=== PATIENT | female | born 1965 | race Caucasian/White ===

== ENCOUNTER → 2017-08-01 13:36 | Outpatient (CLI) | payer OTHER, SELFPAY ==
--- NOTE | 2017-08-01 13:39 | RAD_ITS ---
STUDY: X-RAY - RIGHT SHOULDER REASON FOR EXAM: Female, 51 years old. Strain injury. TECHNIQUE: 4 view(s) of the shoulder. COMPARISON: Chest, June 19, 2016. FINDINGS: Normal glenohumeral articulation. There is mild degenerative arthrosis of the acromioclavicular joint without inferior osseous spur formation. Normal acromion. There is no acute fracture, dislocation or destructive osseous pathology. Normal humeral head and visualized proximal humerus. The soft tissue structures are unremarkable. Normal visualized pulmonary apex. RAD/Shoulder min 2 Views IMPRESSION: Minimal acromioclavicular joint degenerative change. The findings are unchanged from prior chest film. Electronically Signed: Crow Wan DO at 18:54 EDT Tel [phone], Service support ,
== END ==
PROVIDERS: Family Provider Family Medicine; PCP Family Medicine; Visit Provider Physician Assistant
DX: S46.911A Strain of unspecified muscle, fascia and tendon at shoulder and upper arm level, right arm, initial encounter (principal); M25.511 Pain in right shoulder
CPT/HCPCS: 73030

== ENCOUNTER 2017-09-20 09:30 | Outpatient (RCR) | payer OTHER, SELFPAY ==
--- NOTE | 2017-08-17 14:57 | HP.PTEVAL_ITS ---
Patient's Visit Information TEETEE WALKER is a 51 year old F referred to Physical Therapy by SAMEER Garcia.SAUL with a diagnosis of R biceps tendonitis and shoulder strain.. Date of Evaluation: 08/17/17 Physical Therapist: Ludwin Barber DPT, OC - Visit Plan Frequency: 2-3x /Week Duration: 4 Weeks Plan: 3x/week for 4 weeks for. US nonthermal to R anterior shoulder. R shoulder PROM and mobs for pain. R shoulder sstrength and scap strength painfree. - Subjective Subjective: R shoulder working on a weekend and pulling patinet with gait belt yanking on R UE and that was July 20. Pain in shoulder has been since then. Pain is anterior R shoulder and was healthy prior. No numbness or tingling and no neck problems lately but was tight initially in R neck. Hurts to lie on R side and this interrupts her sleep but it is improving, needs motrin. Lying on L side can hurt also. 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 Comfortable at rest. Avoids sweeping as she is right handed. Lifting hand overhead hurts. Putting on shirt hurts. Not doing aerobics with hand over head. - Pain R shoulder pain Pain Intensity (Out of 10): 0 Pain Intensity Range: 0, 10 Comment: on back lying last night and moving. - Objective Walks and transfers I. Posture is forward head and forward shoulders/scapula. L UE AROM WFL. C/S AROM WFL and without pain, - c/s compression. R UE limited in flexion ROM to 130 due to paina dn abd, passively has full ROM but painful. Full rotation ROM but painful end range of IR. Elbow and wrist ROM ful and painfree. reflexes 2/3 bi and tri. Sensation UE WNL to gross light touch. - Vicente Tee, - Ann, - ext rotation lag test, not much problem with labral test, slightly painful R. - drop arm. - Goals Goal 1:: Full aROM R shoulder without pain Goal Time Frame: 2-4 Weeks Goal 2:: Patient have pain 0-2/10 at all times and 80% improved. Goal Time Frame: 2-4 Weeks Goal 3:: Patient ready to have work restrictions lifted safely. Goal Time Frame: 2-4 Weeks - Rehabilitation Potential Physical Therapy Diagnosis: R shoulder pain labral vs subluxed. Rehabilitation Potential: Fair - Anticipated Interventions Patient/Client Instruction: Educate patient on: Condition, Plan of Care For the Purpose of:: To decrease pain, To increase ROM, To improve ability of physical actions for home/community/work/leisure Therapeutic Exercise to Include: Strength training, Passive ROM, Active ROM, Scapular Strength/Stabilization For the Purpose of:: To increase ROM, To improve ability of physical actions for home/community/work/leisure Cryotherapy (ice pack, ice massage): Yes Ultrasound (thermal/non thermal): Yes - nonthermal For the Purpose of:: To decrease pain, To decrease swelling/inflammation Thank you for the opportunity to evaluate your patient. For Medicare and Medicare HMO plans, please review the plan of care and approve it. It will need to be FAXED BACK to us at [phone] for Medicare purposes. Please let me know if there are questions or concerns regarding this plan of care. Physician Signature: Date:
--- NOTE | 2017-09-04 15:21 | HP.PTREVAL_ITS ---
SAMEER Garcia, It has been my pleasure to treat TEETEE WALKER over the last 8 visits for R biceps tendonitis and shoulder strain.. Please see the progress note below for an update on the physical therapy plan of care! Subjective: Better, not as much pain. Can put arm behond back without pain. Hair and dressing OK. Exercises at home with stretching and ROM. Sleep is good. Pain to 3/10 in last Two days on computer, worse end of day. Objective/Function: Full aROM R UE but horiz add still somewhat painful. Other motions much better. Pt comofrtable at rest. Strength is 4/5 R UE and some pain with abd resisted and supination slightly. OVERALL MUCH BETTER BUT RECOMMEND GETTING EXTENSION FOR 4 MORE VISITS TO PROGRESS TO STRENGTHENING. Plan Plan: COTINUE AND WORK ON STRENGTH OF SCAP AND rc AND IN GYM PROGRESSION BACK TO FULL MACHINES AND DUMBBELLS PAIN ALLOWS. RECOMMEND CONTINUING PRECAUTIONS AND LIMITATIONS AT WORK UNTIL THIS TIME IS UP. Goals Goal 1:: Full aROM R shoulder without pain Goal Time Frame: 2-4 Weeks Goal Progress: Progressing Goal 2:: Patient have pain 0-2/10 at all times and 80% improved. Goal Time Frame: 2-4 Weeks Goal Progress: Progressing Goal 3:: Patient ready to have work restrictions lifted safely. Goal Time Frame: 2-4 Weeks Goal Progress: Progressing Goal 4:: Pt back to I workout in gym for overall body and specific RC and scap ex. Goal Time Frame: 2 Weeks Goal Progress: NEW GOAL Anticipated Interventions Patient/Client Instruction: Educate patient on: Condition, Plan of Care For the Purpose of:: To decrease pain, To increase ROM, To improve ability of physical actions for home/community/work/leisure Therapeutic Exercise to Include: Strength training, Passive ROM, Active ROM, Scapular Strength/Stabilization For the Purpose of:: To increase ROM, To improve ability of physical actions for home/community/work/leisure Cryotherapy (ice pack, ice massage): Yes Ultrasound (thermal/non thermal): Yes - nonthermal For the Purpose of:: To decrease pain, To decrease swelling/inflammation Please do not hesitate to contact me at [phone] by phone or Fax: if you have questions or concerns regarding this new plan of care! Sincerely, Ludwin Barber, DPT, OC
--- NOTE | 2017-09-20 10:21 | HP.PTDCSUM ---
HP - PT D/C Summary It has been my pleasure to treat TEETEE WALKER under orders from SAMEER Garcia, for the diagnosis of R biceps tendonitis and shoulder strain. for a total of 12 visit(s). Discharge Date: 09/20/17 Please see the following information for a summary of their discharge status. - Subjective Subjective: OK. Always feels tight. Pain has been nonexistent. Worked yesterday on computer all day. Stretching at home. and it loosens her up. Strengthening in gym. [facility]. Stilla voiding lifting and transferring at work due to orders. - Pain R shoulder pain Pain Intensity (Out of 10): 0 - Overall Improvement % Improvement: 90 - Objective Objective/Function: Full aROM R UE, Only slight tightness at end of flexion. Biceps stillslightly tender at origin on R. Resisted elbow flexion and shoulder flexion with palm up give mild transient discomfort. OVERALL MUCH BETTER BUT STILL SOME TENDERNESS IN BICEPS TENDON. - Goals Goal 1:: Full aROM R shoulder without pain Goal Progress: Mostly met Goal 2:: Patient have pain 0-2/10 at all times and 80% improved. Goal Progress: Goal Met Goal 3:: Patient ready to have work restrictions lifted safely. Goal Progress: Goal Met Goal 4:: Pt back to I workout in gym for overall body and specific RC and scap ex. Goal Progress: Goal Met - Plan Plan: D/C, pt to doctor today. - D/C Information Discharge Comments: Pt to doctor today and expect release to work full. Still does have some slight biceps tenderness however. If there are questions or concerns regarding this patient's physical therapy, please feel free to call me at [phone]. Thank you for the referral of this patient. Sincerely, Ludwin Barber, DPT, OC
== END 2017-09-20 19:00 | disposition home or self-care (01) ==
LOC: PT 09:30
PROVIDERS: Family Provider Family Medicine; PCP Family Medicine; Visit Provider Physician Assistant
DX: S46.911D Strain of unspecified muscle, fascia and tendon at shoulder and upper arm level, right arm, subsequent encounter (principal); M75.21 Bicipital tendinitis, right shoulder
CPT/HCPCS: 97035; 97110; 97140; 97162; 97530

== ENCOUNTER → 2018-01-09 10:51 | Outpatient (CLI) | payer OTHER, SELFPAY | PROVIDERS: Family Provider Family Medicine; PCP Family Medicine; Visit Provider Obstetrics & Gynecology | DX: Z12.31 Encounter for screening mammogram for malignant neoplasm of breast (principal) | CPT/HCPCS: 77063; 77067 ==

== ENCOUNTER 2018-03-17 06:54 | Inpatient (IN) | payer OTHER, SELFPAY ==
[2018-03-17 06:56] VITALS: BP 125/82; PULSE 65; RESP 18; TEMP 36.7; O2SAT 100
--- NOTE | 2018-03-17 07:02 | CT_ITS ---
HISTORY: RIGHT FLANK PAIN TECHNIQUE: Multiple axial images were obtained of the abdomen and pelvis without oral or IV contrast. A radiation dose optimization technique was used for this scan. IV Contrast dosage and agent: None. Oral contrast: None. COMPARISON: None FINDINGS: Both kidneys are normal in position. 4 x 2 mm stone at the right UVJ with mild hydronephrosis and hydroureter proximal to the stone. 2 mm calyceal stone, lower pole of the left kidney. A central parapelvic cyst of the left kidney is suspected but not well evaluated on this non-infusion exam no hydroureter on the left. Adrenal glands are not enlarged. Abdominal aorta is atherosclerotic and is normal in caliber. No ascites or retroperitoneal adenopathy. Lung bases: No pleural effusion. Gallbladder: At least one stone measuring 1.8 cm in maximal dimension. No pericholecystic inflammatory changes and no biliary dilatation identified. Multiple hepatic cysts of varying size. The spleen and pancreas show no CT abnormality. GI track: No obstruction. Normal appendix. Constipation pattern. Pelvis: No free fluid or lymphadenopathy. Anteverted uterus. The urinary bladder is poorly distended. Osseous structures: No fracture or suspicious lesion. Mild scoliosis. CT/Abdomen/Pelvis without Cont IMPRESSION: 1. 4 x 2 mm right UVJ stone with mild hydronephrosis and hydroureter proximal to stone. 2. Left renal small nonobstructing stone. 3. Cholelithiasis. Negative for biliary dilatation. 4. Multiple hepatic cysts. Individualized dose optimization techniques were used for this CT. at 0803 Reported and signed by: Randy Clayton MD Electronically Signed: Randy Clayton, at 8:01 EST Tel , Service support ,
[2018-03-17] MEDS: 0.9% Normal Saline 1,000 ML 125 ML IV (07:14)
[2018-03-17] MEDS: Ketorolac 30 MG/ML Syringe 15 MG IV (07:14)
[2018-03-17] MEDS: HYDROmorphone 1 MG/ML Syringe IV (07:15)
[2018-03-17] MEDS: Ondansetron 4 MG/2 ML Vial IV (07:15)
[2018-03-17 07:17] LABS: Absolute Lymphocyte Count 3.07 X10^3/ul (0.83-4.51); Basophil# 0.03 X10^3/uL; Basophil% 0.3 % (0-1); Eosinophil# 0.12 X10^3/uL; Eosinophils% 1.3 % (0-5); Hematocrit 43.7 % (37-47); Hemoglobin 13.9 g/dl (12.0-15.0); Lymphocyte # 3.07 X10^3/ul (4.0); Lymphocyte % 34.4 % (19-41); Mean Corp Hgb Conc 31.8 g/gl (32-36); Mean Corpuscular Volume 91.2 fL (81-99); Mean Platelet Vol. 9.2 fl (6.2-12.0); Monocyte# 0.69 X10^3/uL; Monocyte% 7.7 % (0-10); Neutrophil # 4.97 X10^3/uL (2.7-7.7); Neutrophil % 55.9 % (47-70); Platelet Count 312 K/mm3 (150-450); RBC Distribution Width CV 12.7 % (11.6-14.6); RBC Distribution Width SD 42.5 fl (35.1-43.9); Red Blood Count 4.79 M/mm3 (4.2-5.4); White Blood Count 8.9 K/mm3 (4.4-11.0)
[2018-03-17 07:21] LABS: POSITIVE COUNT NO; POSITIVE DIFFERENTIAL NO; POSITIVE MORPHOLOGY NO
[2018-03-17 07:25] LABS: Anion Gap 9 (5-15); BUN 23 mg/dL (7-18); BUN/Creat Ratio 29.7 RATIO (10-20); Calcium,Total 8.9 mg/dL (8.5-10.1); Chloride 109 mmol/L (98-107); Creatinine, Serum 0.78 mg/dL (0.55-1.02); EST Glomerular Filtration Rate 83 mL/min (>60); Est Glom Filt Rate - Afr Amer 100 mL/min (>60); Glucose 135 mg/dL (74-106); Potassium 3.7 mmol/L (3.5-5.1); Sodium Level 142 mmol/L (136-145)
[2018-03-17 08:17] LABS: Mucous, Urine 0 SEEN /hpf (<or=2+); Red Blood Cells-Urine 0 SEEN /hpf (0-5); Squamous Epithelial Cells - UA 0 SEEN /hpf (5-10)
[2018-03-17] MEDS: Morphine 4 MG/ML Syringe IV (08:25)
[2018-03-17] MEDS: proMETHazine 25 MG/ML Syringe 12.5 MG IV (08:25)
[2018-03-17 08:45] LABS: Color, Urine Yellow (Yellow); Glucose, Dipstick Normal (Normal); Ketone-Dipstick 50 mg/dl (Negative); Leukocyte Esterase-Dipstick 25 /ul (Negative); Nitrite-Dipstick Negative (Negative); Occult Blood-Urine Negative /ul (Negative); Protein-Dipstick 15 mg/dl (Negative); Specific Gravity, Urine 1.025 (1.002-1.030); Urine Bilirubin Dipstick Negative (Negative); Urine Clarity Sl. Cloudy (Clear); Urine Urobilinogen Normal (Normal)
[2018-03-17 08:52] LABS: White Blood Cells 0-5 SEEN /hpf (0-5)
[2018-03-17 08:53] LABS: Bacteria RARE /hpf (None Seen)
--- NOTE | 2018-03-17 09:12 | ED.DCSUM_ITS ---
- ER Visit Summary Date of Service: 03/17/18 Chief Complaint: [Right flank pain] History of Present Illness: The patient is a 52 F [presents to the emergency department complaint of right flank pain times half an hour. Patient rates the pain as a 10 out of 10. Patient states the pain came on suddenly and is severe. Patient had sweats and vomiting with it. Patient is never had discomfort like this before. She denies urinary symptoms. She is had no fever. Patient has no significant medical history or past surgical history.] Physical Examination: [HEENT-PERRLA, EOMI. Cranial nerves II through XII grossly intact. TMs clear. Mucous membranes moist. No adenopathy. Patient appears very uncomfortable as I entered the room and is writhing around in pain. Cardiovascular-regular rate and rhythm without murmur or ectopy Lungs-clear to auscultation, chest wall stable without crepitus or subcu emphysema Abdomen-normoactive bowel sounds, soft. Patient has tenderness over the right lower quadrant with guarding. There is no rebound, rigidity, or perineal signs. Patient has positive CVA tenderness on the right. Extremities-intact ?4, normal range of motion, normal pulses, atraumatic] Test Results: [CBC with differential was normal. Chemistries unremarkable. Urinalysis was normal. CT flank showed a 4 x 2 mm right UVJ stone with hydroureter. Patient also noted to have cholelithiasis but no evidence of ductal dilatation. Patient has a small left renal stone.] Emergency Department Course and Treatment: [Patient was medicated with Toradol and Dilaudid initially and she continued to have pain and nausea. Patient was then given morphine and Phenergan. Patient continues to complain of pain is 4 out of 10 and continues to have nausea and dry heaves. Treatment Plan: [Patient will be admitted for pain control] Disposition: [Admit] Impression: [Kidney stone with colic Intractable pain] This note was generated with [employer] dictation software. It may contain incorrect words, spelling, and punctuation that were not noted in review of the chart prior to signing ED Disposition - Plan for ED Patient: Chief Complaint: Flank Pain Referrals: Smooth Higgins MD [Primary Care Provider] -
--- NOTE | 2018-03-17 09:27 | NURSING ---
MED SURG [place] WITH COLIC, INTRACATABLE PAIN NICOLETTE
[2018-03-17 09:51] VITALS: BMI 30.1
[2018-03-17 10:04] VITALS: BP 102/68; PULSE 65; RESP 16; TEMP 36.4; O2SAT 98
--- NOTE | 2018-03-17 10:19 | PCM.HP.STD ---
Problem List (1) Mild hydronephrosis Status: Acute (2) Kidney stone Status: Acute (3) Renal colic Status: Acute History of Present Illness Date of Admission: 03/17/18 Chief Complaint: Right flank pain. The patient is a 52 year old F with no significant past medical history presented to the emergency room because of right flank pain. Her symptoms started this morning around 6:30 AM when she was at work, started having right flank pain, described as sharp stabbing pain, 20 out of 10 in severity according to the patient, extends down to the right groin, associated with nausea and vomiting and without aggravating or relieving factors. She denies urinary symptoms such as dysuria, frequency or hematuria. She denies fever or chills. She denies constipation or diarrhea. In the emergency department, her vital signs were stable. Her routine blood work was unremarkable. Her urine revealed cloudy urine, negative for nitrite, only 25 leukocyte esterase, 0-5 WBCs and rare bacteria. CT scan abdomen and pelvis without contrast revealed 4 x 2 mm right UVJ stone with mild right hydronephrosis and hydroureter, left nonobstructing small kidney stone as well as cholelithiasis without evidence of acute cholecystitis. She received IV fluids, IV morphine, IV Dilaudid and IV Toradol for pain control without any significant improvement. She is being admitted for renal colic secondary to right UVJ stone with mild hydronephrosis and hydroureter. Past Medical History Medical History: Medical History (Last Reviewed 09/20/17 @ 10:38 by Magui Ratliff) History of pneumonia Z87.01 Knee pain M25.569 Shoulder pain M25.519 Allergies Penicillins Allergy (Mild, Verified 03/17/18 06:55) Hives mild rash on back from Zosyn codeine phosphate [From Tylenol-Codeine #3] Allergy (Verified 03/17/18 06:55) Rash Also has N/V piperacillin sodium [From Zosyn] Allergy (Verified 03/17/18 06:55) Hives tazobactam sodium [From Zosyn] Allergy (Verified 03/17/18 06:55) Hives acetaminophen [From Tylenol] Adverse Reaction (Verified 03/17/18 06:55) Hives, burning feeling, n/v Home Medications: Ambulatory Orders Medication Instructions Recorded Ibuprofen [Motrin] 800 mg PO TID PRN PRN 09/25/16 multivitamin capsule 1 cap PO QAM 08/01/17 Surgical History: Surgical History (Last Reviewed 09/20/17 @ 10:38 by Magui Ratliff) Hx of knee surgery Z98.890 Surgical History: - - Left knee arthroscopic surgery, ORIF for left humeral fracture. Psychiatric History: No pertinent psych hx [employer] History: No pertinent [employer] history Lives: Spouse/ Significant Other Smoking Status: Never smoker Alcohol: Occasional Drugs: None - *Family History Maternal Family History: Family History (Last Reviewed 09/20/17 @ 10:38 by Magui Ratliff) Mother Cancer Grandmother Heart disease History Items: No pertinent history, - - No history of kidney stones in the family. Paternal Family History: Family History (Last Reviewed 09/20/17 @ 10:38 by Magui Ratliff) Mother Cancer Grandmother Heart disease History Items: No pertinent history Review of Systems Constitutional: Denies: Anorexia, Chills, Fever, Weakness Eyes: Denies: Blurred vision, Double vision, Drainage, Redness HEENT: Denies: Difficulty Hearing, Dysphasia, Ear Pain, Eye Pain, Nasal Congestion, Sore Throat Cardiovascular: Denies: Chest Pain, Chest Pressure, Chest Tightness, Light Headedness, Palpitations, Syncope Respiratory: Denies: Cough, Pleuritic Pain, Shortness of Breath, Sputum production, Wheezing Gastrointestinal: Reports: Abdominal Pain, Nausea, Vomiting. Denies: Constipation, Diarrhea, Hematochezia, Melena Genitourinary: Denies: Dysuria, Frequency, Hematuria Musculoskeletal: Denies: Arm Pain, Back Pain, Foot Pain Skin: Denies: Dryness, Rash Neurological: Denies: Balance problems, Double vision, Change in Speech, Slurred speech, Headaches, Incoordination, Numbness Psychiatric: Denies: Anxiety, Depression Endocrine: Denies: Change in Body Habitus, Polydipsia VTE Information - Inpt Only VTE Present on Admission: No VTE Mechan Device Prophylaxis: None VTE Pharm Prophylaxis ordered?: No Patient Problems: Active and Suspected Problems (Last Reviewed 09/20/17 @ 10:38 by Magui Ratliff) Mild hydronephrosis (Acute) Kidney stone (Acute) Renal colic (Acute) - Physical Exam General: Alert, Oriented x3, Cooperative, No apparent distress HEENT: Atraumatic, PERRLA, EOMI, Normocephalic Oral: Moist Mucosa, No Gingival or Mucosal Lesions/ Ulcerations Neck: Supple, No JVD, Negative Carotid Bruits, Trachea Midline, Thyroid Normal Size and Texture Lungs: Clear to auscultation, Normal air movement, No rhonchi, No wheeze, No rales Cardiovascular: Regular rate, Regular Rhythm, Normal S1, Normal S2, No murmurs, PMI Normal Abdomen: Bowel Sounds Present, Soft, Non Tender, Non-Distended, No Hepato-splenomegaly, - - No CVA tenderness. Extremities: No clubbing, No cyanosis, No edema Skin: No rashes, No breakdown Lymphatic: No Cervical, Supraclavicular, or Inguinal Adenopathy Neurological: Cranial nerves II-XII grossly intact, Motor Exam 5/5 strength throughout Psych/Mental Status: Normal Affect, Appropriate, Alert and oriented to time, place, person, mood and affect Vital Signs Temp Pulse Resp BP Pulse Ox 97.5 F L 65 16 102/68 98 03/17/18 10:04 03/17/18 10:04 03/17/18 10:04 03/17/18 10:04 03/17/18 10:04 Oxygen Delivery Method Room Air Weight: 169 lb 8.568 oz Body Mass Index (BMI) 30.0 Laboratory Tests Past 24 Hrs 03/17/18 03/17/18 03/17/18 07:00 07:00 08:05 WBC 8.9 RBC 4.79 Hgb 13.9 Hct 43.7 MCV 91.2 MCH 29.0 MCHC 31.8 L RDW 12.7 RDW Differential 42.5 Plt Count 312 MPV 9.2 Immature Gran % (Auto) 0.400 Neut % (Auto) 55.9 Lymph % (Auto) 34.4 [place] % (Auto) 7.7 Eos % (Auto) 1.3 Baso % (Auto) 0.3 Absolute Neuts (auto) 5.0 Absolute Lymphs (auto) 3.07 Total Counted Not Reportable Sodium 142 Potassium 3.7 Chloride 109 H Carbon Dioxide 24.0 Anion Gap 9 BUN 23 H Creatinine 0.78 Estim Creat Clear Calc 69.00 Est GFR (MDRD) Af Amer 100 Est GFR (MDRD) Non-Af 83 BUN/Creatinine Ratio 29.7 H Glucose 135 H Calcium 8.9 Urine Color Yellow Urine Clarity Sl. Cloudy Urine pH 5.0 Ur Specific [place] 1.025 Urine Protein 15 H Urine Glucose (UA) Normal Urine Ketones 50 H Urine Occult Blood Negative Urine Nitrite Negative Urine Bilirubin Negative Urine Urobilinogen Normal Ur Leukocyte Esterase 25 H Urine RBC 0 SEEN Urine WBC 0-5 SEEN Ur Squamous Epith Cells 0 SEEN Urine Bacteria RARE Urine Mucus 0 SEEN Clinical Impression(s) from Imaging Studies Abdomen/Pelvis CT 03/17/18 07:02 IMPRESSION: 1. 4 x 2 mm right UVJ stone with mild hydronephrosis and hydroureter proximal to stone. 2. Left renal small nonobstructing stone. 3. Cholelithiasis. Negative for biliary dilatation. 4. Multiple hepatic cysts. Individualized dose optimization techniques were used for this CT. at 0803 Reported and signed by: Randy Clayton MD Electronically Signed: Randy Clayton, at 8:01 EST Tel , Service support , Assessment/Plan All Active Problems (Last Reviewed 09/20/17 @ 10:38 by Magui Ratliff) Mild hydronephrosis (Acute) Kidney stone (Acute) Renal colic (Acute) This is a 52 years old female patient admitted because of right flank pain and she was found to have renal colic secondary to right UVJ stone with mild right hydronephrosis and hydroureter and her pain was not controlled with IV morphine, IV Toradol and IV Dilaudid that she received in the ER. #1 renal colic/right UVJ stone/right mild hydronephrosis/hydroureter: CT abdomen pelvis reviewed, stone size was 4 x 2 mm. She also has other small nonobstructing left kidney stone which measures 2 mm without evidence of hydronephrosis in the left. Also, CT scan abdomen revealed gallstone without evidence of cholecystitis. She received IV morphine, IV Dilaudid and IV Toradol in the ER without significant improvement. Her vital signs are stable, afebrile. Urine analysis revealed no evidence of pyuria or bacteria. [facility] fluids, IV morphine as needed for pain, IV Zofran and Phenergan as needed for nausea and vomiting, Tylenol as needed, OxyIR as needed, repeat CBC and BMP tomorrow morning, urology consult. #2 DVT prophylaxis: Low risk patient, no prophylaxis indicated. This note was generated with [employer] dictation software. It may contain incorrect words, spelling, and punctuation that were not noted in checking the note before signing. Code Visit Inpatient E&M: 47308 Init Hosp L3
--- NOTE | 2018-03-17 10:24 | HP.PCM_ITS ---
Problem List (1) Mild hydronephrosis Status: Acute (2) Kidney stone Status: Acute (3) Renal colic Status: Acute History of Present Illness Date of Admission: 03/17/18 Chief Complaint: Right flank pain. The patient is a 52 year old F with no significant past medical history presented to the emergency room because of right flank pain. Her symptoms started this morning around 6:30 AM when she was at work, started having right flank pain, described as sharp stabbing pain, 20 out of 10 in severity according to the patient, extends down to the right groin, associated with nausea and vomiting and without aggravating or relieving factors. She denies urinary symptoms such as dysuria, frequency or hematuria. She denies fever or chills. She denies constipation or diarrhea. In the emergency department, her vital signs were stable. Her routine blood work was unremarkable. Her urine revealed cloudy urine, negative for nitrite, only 25 leukocyte esterase, 0-5 WBCs and rare bacteria. CT scan abdomen and pelvis without contrast revealed 4 x 2 mm right UVJ stone with mild right hydronephrosis and hydroureter, left nonobstructing small kidney stone as well as cholelithiasis without evidence of acute cholecystitis. She received IV fluids, IV morphine, IV Dilaudid and IV Toradol for pain control without any significant improvement. She is being admitted for renal colic secondary to right UVJ stone with mild hydronephrosis and hydroureter. Past Medical History Medical History: Medical History (Last Reviewed 09/20/17 @ 10:38 by Magui Ratliff) History of pneumonia Z87.01 Knee pain M25.569 Shoulder pain M25.519 Allergies Penicillins Allergy (Mild, Verified 03/17/18 06:55) Hives mild rash on back from Zosyn codeine phosphate [From Tylenol-Codeine #3] Allergy (Verified 03/17/18 06:55) Rash Also has N/V piperacillin sodium [From Zosyn] Allergy (Verified 03/17/18 06:55) Hives tazobactam sodium [From Zosyn] Allergy (Verified 03/17/18 06:55) Hives acetaminophen [From Tylenol] Adverse Reaction (Verified 03/17/18 06:55) Hives, burning feeling, n/v Home Medications: Ambulatory Orders Medication Instructions Recorded Ibuprofen [Motrin] 800 mg PO TID PRN PRN 09/25/16 multivitamin capsule 1 cap PO QAM 08/01/17 Surgical History: Surgical History (Last Reviewed 09/20/17 @ 10:38 by Magui Ratliff) Hx of knee surgery Z98.890 Surgical History: - - Left knee arthroscopic surgery, ORIF for left humeral fracture. 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 Paternal Family History: Family History (Last Reviewed 09/20/17 @ 10:38 by Magui Ratliff) Mother Cancer Grandmother Heart disease History Items: No pertinent history Review of Systems Constitutional: Denies: Anorexia, Chills, Fever, Weakness Eyes: Denies: Blurred vision, Double vision, Drainage, Redness HEENT: Denies: Difficulty Hearing, Dysphasia, Ear Pain, Eye Pain, Nasal Congestion, Sore Throat Cardiovascular: Denies: Chest Pain, Chest Pressure, Chest Tightness, Light Headedness, Palpitations, Syncope Respiratory: Denies: Cough, Pleuritic Pain, Shortness of Breath, Sputum production, Wheezing Gastrointestinal: Reports: Abdominal Pain, Nausea, Vomiting. Denies: Constipation, Diarrhea, Hematochezia, Melena Genitourinary: Denies: Dysuria, Frequency, Hematuria Musculoskeletal: Denies: Arm Pain, Back Pain, Foot Pain Skin: Denies: Dryness, Rash Neurological: Denies: Balance problems, Double vision, Change in Speech, Slurred speech, Headaches, Incoordination, Numbness Psychiatric: Denies: Anxiety, Depression Endocrine: Denies: Change in Body Habitus, Polydipsia VTE Information - Inpt Only VTE Present on Admission: No VTE Mechan Device Prophylaxis: None VTE Pharm Prophylaxis ordered?: No Patient Problems: Active and Suspected Problems (Last Reviewed 09/20/17 @ 10:38 by Magui Ratliff) Mild hydronephrosis (Acute) Kidney stone (Acute) Renal colic (Acute) - Physical Exam General: Alert, Oriented x3, Cooperative, No apparent distress HEENT: Atraumatic, PERRLA, EOMI, Normocephalic Oral: Moist Mucosa, No Gingival or Mucosal Lesions/ Ulcerations Neck: Supple, No JVD, Negative Carotid Bruits, Trachea Midline, Thyroid Normal Size and Texture Lungs: Clear to auscultation, Normal air movement, No rhonchi, No wheeze, No rales Cardiovascular: Regular rate, Regular Rhythm, Normal S1, Normal S2, No murmurs, PMI Normal Abdomen: Bowel Sounds Present, Soft, Non Tender, Non-Distended, No Hepato- splenomegaly, - - No CVA tenderness. Extremities: No clubbing, No cyanosis, No edema Skin: No rashes, No breakdown Lymphatic: No Cervical, Supraclavicular, or Inguinal Adenopathy Neurological: Cranial nerves II-XII grossly intact, Motor Exam 5/5 strength throughout Psych/Mental Status: Normal Affect, Appropriate, Alert and oriented to time, place, person, mood and affect Vital Signs Temp Pulse Resp BP Pulse Ox 97.5 F L 65 16 102/68 98 03/17/18 10:04 03/17/18 10:04 03/17/18 10:04 03/17/18 10:04 03/17/18 10:04 Oxygen Delivery Method Room Air Weight: 169 lb 8.568 oz Body Mass Index (BMI) 30.0 Laboratory Tests Past 24 Hrs 03/17/18 03/17/18 03/17/18 07:00 07:00 08:05 WBC 8.9 RBC 4.79 Hgb 13.9 Hct 43.7 MCV 91.2 MCH 29.0 MCHC 31.8 L RDW 12.7 RDW Differential 42.5 Plt Count 312 MPV 9.2 Immature Gran % (Auto) 0.400 Neut % (Auto) 55.9 Lymph % (Auto) 34.4 [place] % (Auto) 7.7 Eos % (Auto) 1.3 Baso % (Auto) 0.3 Absolute Neuts (auto) 5.0 Absolute Lymphs (auto) 3.07 Total Counted Not Reportable Sodium 142 Potassium 3.7 Chloride 109 H Carbon Dioxide 24.0 Anion Gap 9 BUN 23 H Creatinine 0.78 Estim Creat Clear Calc 69.00 Est GFR (MDRD) Af Amer 100 Est GFR (MDRD) Non-Af 83 BUN/Creatinine Ratio 29.7 H Glucose 135 H Calcium 8.9 Urine Color Yellow Urine Clarity Sl. Cloudy Urine pH 5.0 Ur Specific [place] 1.025 Urine Protein 15 H Urine Glucose (UA) Normal Urine Ketones 50 H Urine Occult Blood Negative Urine Nitrite Negative Urine Bilirubin Negative Urine Urobilinogen Normal Ur Leukocyte Esterase 25 H Urine RBC 0 SEEN Urine WBC 0-5 SEEN Ur Squamous Epith Cells 0 SEEN Urine Bacteria RARE Urine Mucus 0 SEEN Clinical Impression(s) from Imaging Studies Abdomen/Pelvis CT 03/17/18 07:02 IMPRESSION: 1. 4 x 2 mm right UVJ stone with mild hydronephrosis and hydroureter proximal to stone. 2. Left renal small nonobstructing stone. 3. Cholelithiasis. Negative for biliary dilatation. 4. Multiple hepatic cysts. Individualized dose optimization techniques were used for this CT. at 0803 Reported and signed by: Randy Clayton MD Electronically Signed: Randy Clayton, at 8:01 EST Tel , Service support , Assessment/Plan All Active Problems (Last Reviewed 09/20/17 @ 10:38 by Magui Ratliff) Mild hydronephrosis (Acute) Kidney stone (Acute) Renal colic (Acute) This is a 52 years old female patient admitted because of right flank pain and she was found to have renal colic secondary to right UVJ stone with mild right hydronephrosis and hydroureter and her pain was not controlled with IV morphine, IV Toradol and IV Dilaudid that she received in the ER. #1 renal colic/right UVJ stone/right mild hydronephrosis/hydroureter: CT abdomen pelvis reviewed, stone size was 4 x 2 mm. She also has other small nonobstructing left kidney stone which measures 2 mm without evidence of hydronephrosis in the left. Also, CT scan abdomen revealed gallstone without evidence of cholecystitis. She received IV morphine, IV Dilaudid and IV Toradol in the ER without significant improvement. Her vital signs are stable, afebrile. Urine analysis revealed no evidence of pyuria or bacteria. [facility] fluids, IV morphine as needed for pain, IV Zofran and Phenergan as needed for nausea and vomiting, Tylenol as needed, OxyIR as needed, repeat CBC and BMP tomorrow morning, urology consult. #2 DVT prophylaxis: Low risk patient, no prophylaxis indicated. This note was generated with [employer] dictation software. It may contain incorrect words, spelling, and punctuation that were not noted in checking the note before signing. Code Visit Inpatient E&M: 82233 Init Hosp L3
[2018-03-17] MEDS: 0.9% Normal Saline 1,000 ML 100 ML IV (16:21)
[2018-03-17 16:23] VITALS: BP 107/57; PULSE 73; RESP 16; TEMP 37; O2SAT 95
--- NOTE | 2018-03-17 19:02 | PCM.CONS.U ---
Reason for Consult Date of Consultation: 03/17/18 Reason for Consultation: 4 mm right ureteral calculi History of Present Illness: The patient is a 52 year old healthy female that presented with severe pain in the right side from a 4 mm calculi in the distal right ureter causing obstruction and hydronephrosis and hydroureter of obstruction she was admitted for pain control and I was called to see her as a consultation she is currently stable she does not pass the stone nurses been straining her urine and no stone is been reported her pain is now under better control. Past Medical History Medical History: Medical History (Last Reviewed 09/20/17 @ 10:38 by Magui Ratliff) History of pneumonia Z87.01 Knee pain M25.569 Shoulder pain M25.519 Allergies Penicillins Allergy (Mild, Verified 03/17/18 06:55) Hives mild rash on back from Zosyn codeine phosphate [From Tylenol-Codeine #3] Allergy (Verified 03/17/18 06:55) Rash Also has N/V piperacillin sodium [From Zosyn] Allergy (Verified 03/17/18 06:55) Hives tazobactam sodium [From Zosyn] Allergy (Verified 03/17/18 06:55) Hives acetaminophen [From Tylenol] Adverse Reaction (Verified 03/17/18 06:55) Hives, burning feeling, n/v Home Medications: Ambulatory Orders Medication Instructions Recorded Ibuprofen [Motrin] 800 mg PO TID PRN PRN 09/25/16 multivitamin capsule 1 cap PO QAM 08/01/17 Surgical History: Surgical History (Last Reviewed 09/20/17 @ 10:38 by Magui Ratliff) Hx of knee surgery Z98.890 Surgical History: noncontributory, - - Left knee arthroscopic surgery, ORIF for left humeral fracture. 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 Review of Systems Constitutional: Denies: Chills, Fever, Weight Change HEENT: Denies: Head Aches, Sinus Congestion, Sinus Drainage Cardiovascular: Denies: Chest Pain, Palpitations Respiratory: Denies: Cough, Shortness of breath at rest, Sputum production Gastrointestinal: Denies: Abdominal Pain, Nausea, Vomiting Genitourinary: Denies: Dysuria Musculoskeletal: Denies: Joint Pain, Joint Tenderness Skin: Denies: Rash, Wounds Neurological: Denies: Numbness, Tingling, Focal weakness Psychiatric: Denies: Anxiety, Depression, Homicidal Ideations, Suicidal Ideations Hematologic/ Lymphatic: Denies: Easy Bruising, Easy Bleeding Physical Exam - Physical Exam Vital Signs Temp 98.6 F 03/17/18 16:23 Pulse 73 03/17/18 16:23 Resp 16 03/17/18 16:23 BP 107/57 L 03/17/18 16:23 Pulse Ox 95 03/17/18 16:23 Intake & Output 03/15/18 03/16/18 03/17/18 23:59 23:59 22:59 Intake Total 1054 / 1054 Output Total 250 / 250 Balance 804 / 804 Weight: 76.9 kg Intake: Oral 400 / 400 IV fluid/meds 654 / 654 Output: Urine 250 / 250 General: Alert, Oriented x3 HEENT: Atraumatic Oral: Moist Mucosa Neck: Supple Lungs: Normal air movement Cardiovascular: Regular rate Abdomen: Soft, Obese Laboratory Tests Past 24 Hrs 03/17/18 03/17/18 03/17/18 07:00 07:00 08:05 WBC 8.9 RBC 4.79 Hgb 13.9 Hct 43.7 MCV 91.2 MCH 29.0 MCHC 31.8 L RDW 12.7 RDW Differential 42.5 Plt Count 312 MPV 9.2 Immature Gran % (Auto) 0.400 Neut % (Auto) 55.9 Lymph % (Auto) 34.4 [place] % (Auto) 7.7 Eos % (Auto) 1.3 Baso % (Auto) 0.3 Absolute Neuts (auto) 5.0 Absolute Lymphs (auto) 3.07 Total Counted Not Reportable Sodium 142 Potassium 3.7 Chloride 109 H Carbon Dioxide 24.0 Anion Gap 9 BUN 23 H Creatinine 0.78 Estim Creat Clear Calc 69.00 Est GFR (MDRD) Af Amer 100 Est GFR (MDRD) Non-Af 83 BUN/Creatinine Ratio 29.7 H Glucose 135 H Calcium 8.9 Urine Color Yellow Urine Clarity Sl. Cloudy Urine pH 5.0 Ur Specific [place] 1.025 Urine Protein 15 H Urine Glucose (UA) Normal Urine Ketones 50 H Urine Occult Blood Negative Urine Nitrite Negative Urine Bilirubin Negative Urine Urobilinogen Normal Ur Leukocyte Esterase 25 H Urine RBC 0 SEEN Urine WBC 0-5 SEEN Ur Squamous Epith Cells 0 SEEN Urine Bacteria RARE Urine Mucus 0 SEEN Assessment/Plan All Active Problems (Last Reviewed 09/20/17 @ 10:38 by Magui Ratliff) Mild hydronephrosis (Acute) Kidney stone (Acute) Renal colic (Acute) 52-year-old female with severe right flank pain. CAT scan demonstrates a 4 mm stone in the distal right ureter. Will strain all the urine but I plan add on for the schedule for tomorrow for ureteroscopy and extraction of the stone possible stent if she is not able to pass the stone spontaneously. She is agreeable with the plan will obtain consent and was put on the schedule for tomorrow n.p.o. at midnight.
[2018-03-17 21:09] VITALS: BP 108/58; PULSE 73; RESP 16; TEMP 36.9; O2SAT 97
[2018-03-17] MEDS: oxyCODONE 5 MG Tablet PO (21:28)
[2018-03-18] VITALS (8 sets, daily range): BP systolic 109–123; BP diastolic 65–74; PULSE 53–81; RESP 12–18; TEMP 36.2–37; O2SAT 94–99
[2018-03-18] MEDS: 0.9% Normal Saline 1,000 ML 100 ML IV (02:31)
[2018-03-18] MEDS: oxyCODONE 5 MG Tablet PO (06:25)
[2018-03-18 07:43] LABS: Absolute Lymphocyte Count 2.21 X10^3/ul (0.83-4.51); Absolute Neutrophil Count 4.2 X10^3/uL (2.0-7.7); Basophil# 0.02 X10^3/uL; Basophil% 0.3 % (0-1); Eosinophil# 0.09 X10^3/uL; Eosinophils% 1.3 % (0-5); Hematocrit 37.3 % (37-47); Hemoglobin 11.9 g/dl (12.0-15.0); Lymphocyte # 2.21 X10^3/ul (4.0); Lymphocyte % 31.7 % (19-41); Mean Corp Hgb Conc 31.9 g/gl (32-36); Mean Corpuscular Hgb 29.5 pg (27.0-32.0); Mean Corpuscular Volume 92.6 fL (81-99); Mean Platelet Vol. 9.3 fl (6.2-12.0); Monocyte# 0.44 X10^3/uL; Monocyte% 6.3 % (0-10); Neutrophil % 60.3 % (47-70); Platelet Count 253 K/mm3 (150-450); RBC Distribution Width CV 12.7 % (11.6-14.6); RBC Distribution Width SD 42.2 fl (35.1-43.9); Red Blood Count 4.03 M/mm3 (4.2-5.4)
[2018-03-18 07:53] LABS: POSITIVE COUNT NO; POSITIVE DIFFERENTIAL NO; POSITIVE MORPHOLOGY NO
[2018-03-18 08:01] LABS: Anion Gap 9 (5-15); BUN 17 mg/dL (7-18); BUN/Creat Ratio 26.7 RATIO (10-20); Calcium,Total 8.1 mg/dL (8.5-10.1); Chloride 110 mmol/L (98-107); Creatinine, Serum 0.64 mg/dL (0.55-1.02); EST Glomerular Filtration Rate 104 mL/min (>60); Est Glom Filt Rate - Afr Amer 125 mL/min (>60); Estimated Creatinine Clearance 84.09 ml/min; Glucose 92 mg/dL (74-106); Potassium 4.1 mmol/L (3.5-5.1); Sodium Level 145 mmol/L (136-145)
--- NOTE | 2018-03-18 11:05 | CASEMGMT ---
RN CM attempted to complete Face to Face at this time. Patient is currently off the floor, in surgery. RN CM will attempt to complete assessment at later time.
--- NOTE | 2018-03-18 12:30 | PCM.OPRPT ---
Report of Operation Date of Procedure: 03/18/18 Pre-Operative Diagnosis: Right ureter ureteral calculi Post-Operative Diagnosis: Same Surgery/Procedure Performed:: Cystoscopy, balloon dilation of right ureter, right ureteroscopy Description of Surgical Findings:: 52-year-old female was taken back to the operating room after smooth induction of anesthesia she was in dorsolithotomy position the perineum and urethral area were prepped and draped in usual sterile fashion went into the bladder with a 21 [place] rigid cystourethroscope she had a small cystocele the trigone was normal no tumors or stones within the bladder I then cannulated the right ureteral orifice with a Glidewire and a balloon dilator and balloon dilated the ureteral orifice with a 12 [place] balloon dilator then pulled out the wire the balloon dilator then went back in the bladder with a SlimLine ureteroscope was able to get get into the ureter quite easily went up the ureter inspected the lower ureter mid ureter all the way at the upper pole of the ureter and worked my way back down the ureter and no stone was seen in in the entire length of the ureter she must the past the stone. I then removed the ureteroscope went back in the bladder with a cystoscope checked the ureter ureter looked nice and open and draining well and drained the bladder and patient anesthetic was reversed taken back to PACU good condition we did not identify a stone. Type of Anesthesia:: General Drains: none - Admit VTE Documentation VTE Present on Admission: No VTE Mechan Device Prophylaxis: SCD's
--- NOTE | 2018-03-18 13:27 | PCA ---
PT OFF FLOOR
--- NOTE | 2018-03-18 13:52 | DCINST_ITS ---
- Discharge Diagnoses Current Active Problems: Current Active and Chronic Problems (Last Reviewed 09/20/17 @ 10:38 by Magui Ratliff) Mild hydronephrosis (Acute) Kidney stone (Acute) Renal colic (Acute) You will use the following diet at home:: No restrictions Your food should be the consistency of: Regular Discharge Activity: Return to Normal Activity Return to work on:: 03/21/18 Allergies/Adverse Reactions: Allergies Penicillins Allergy (Mild, Verified 03/17/18 06:55) Hives mild rash on back from Zosyn codeine phosphate [From Tylenol-Codeine #3] Allergy (Verified 03/17/18 06:55) Rash Also has N/V piperacillin sodium [From Zosyn] Allergy (Verified 03/17/18 06:55) Hives tazobactam sodium [From Zosyn] Allergy (Verified 03/17/18 06:55) Hives acetaminophen [From Tylenol] Adverse Reaction (Verified 03/17/18 06:55) Hives, burning feeling, n/v Medications to take at Discharge Ibuprofen [Motrin] 800 mg PO TID PRN PRN 09/25/16 multivitamin capsule 1 cap PO QAM 08/01/17 Primary Care Physician: Smooth Higgins MD [Primary Care Provider] - Test Results: Test results from this visit will be discussed in further detail at your follow- up appointment, if applicable. Proposed Discharge Date: 03/18/18
--- NOTE | 2018-03-18 13:53 | PCM.WORK.EX ---
Work/School Excuse Please excuse this person from:: Work From: 03/17/18 through: 03/20/18
--- NOTE | 2018-03-18 14:02 | PCM.DC.SUM ---
Discharge Date and Diagnosis - Problem List Patient Problems: Active and Suspected Problems (Last Reviewed 09/20/17 @ 10:38 by Magui Ratliff) Mild hydronephrosis (Acute) Kidney stone (Acute) Renal colic (Acute) Date of Admission: 03/17/18 Date of Discharge: 03/18/18 - Primary Discharge Diagnosis Active and Suspected Problems (Last Reviewed 09/20/17 @ 10:38 by Magui Ratliff) Mild hydronephrosis (Acute) Kidney stone (Acute) Renal colic (Acute) Hospital Course and Treatment Summary of Care Provided: The patient is a 52 year old F admitted with right flank pain Right flank pain secondary to right UVJ stone/right mild hydronephrosis/hydroureter patient was admitted to regular nursing floor for symptomatic control. Consultation was placed to urology patient was seen by Dr. Morrison who did perform Cystoscopy, balloon dilation of right ureter, right ureteroscopy 03/18/2018. Patient was found to have passed the stone. She was subsequently discharged home instructed to follow-up with PCP for subsequent care Patient Problems: Active and Suspected Problems (Last Reviewed 09/20/17 @ 10:38 by Magui Ratliff) Mild hydronephrosis (Acute) Kidney stone (Acute) Renal colic (Acute) - Physical Exam General: Alert HEENT: Atraumatic Neck: Supple Cardiovascular: Regular rate, Regular Rhythm Neurological: Neuro grossly intact Vital Signs Temp Pulse Resp BP Pulse Ox 97.2 F L 53 L 16 123/72 H 98 03/18/18 13:20 03/18/18 13:20 03/18/18 13:20 03/18/18 13:20 03/18/18 13:20 Oxygen Delivery Method Room Air Weight: 76.657 kg Body Mass Index (BMI) 30.0 Intake and Output for Last 24 Hours 03/17/18 03/17/18 03/18/18 00:59 23:59 23:59 Intake Total 2053 / 2053 Output Total 1475 / 1475 Balance 579 / 579 Laboratory Tests Past 24 Hrs 03/18/18 03/18/18 06:58 06:58 WBC 7.0 RBC 4.03 L Hgb 11.9 L Hct 37.3 MCV 92.6 MCH 29.5 MCHC 31.9 L RDW 12.7 RDW Differential 42.2 Plt Count 253 MPV 9.3 Immature Gran % (Auto) 0.100 Neut % (Auto) 60.3 Lymph % (Auto) 31.7 [place] % (Auto) 6.3 Eos % (Auto) 1.3 Baso % (Auto) 0.3 Absolute Neuts (auto) 4.2 Absolute Lymphs (auto) 2.21 Total Counted Not Reportable Sodium 145 Potassium 4.1 Chloride 110 H Carbon Dioxide 26.0 Anion Gap 9 BUN 17 Creatinine 0.64 Estim Creat Clear Calc 84.09 Est GFR (MDRD) Af Amer 125 Est GFR (MDRD) Non-Af 104 BUN/Creatinine Ratio 26.7 H Glucose 92 Calcium 8.1 L Discharge Activity: Return to Normal Activity Return to work on:: 03/21/18 Home Medications: Medications to take at Discharge Ibuprofen [Motrin] 800 mg PO TID PRN PRN 09/25/16 multivitamin capsule 1 cap PO QAM 08/01/17 Primary Care Physician: Smooth Higgins MD [Primary Care Provider] - Disposition: Home Minutes spent on discharge:: 35 Patient Condition:: Stable Medical Necessity - Tobacco Use Smoking Status: Never smoker Meaningful Use Info Meaningful Use Diagnoses (Choose all that apply): None applicable Code Visit Inpatient E&M: 96885 Disch Hosp
== END 2018-03-18 14:52 | disposition home or self-care (01) | DRG 661 ==
LOC: ED 07:51 → MS3 12:48
PROVIDERS: Urology; Admitting Provider Hospitalist; Emergency Provider Emergency Medicine; Family Provider Family Medicine; PCP Family Medicine; Visit Provider Internal Medicine
PROC: 0T768ZZ Dilation of Right Ureter, Via Natural or Artificial Opening Endoscopic (ICD-10-PCS; CPT 52352; principal; 2018-03-18 08:30)
DX: N13.2 Hydronephrosis with renal and ureteral calculous obstruction (principal); N20.0 Calculus of kidney; K80.20 Calculus of gallbladder without cholecystitis without obstruction
CPT/HCPCS: 36415; 74176; 80048; 81001; 85025; 99284; J7030; A4216; J2405

== ENCOUNTER → 2019-01-10 07:58 | Outpatient (CLI) | payer OTHER, SELFPAY ==
--- NOTE | 2019-01-10 07:59 | BI_ITS ---
MAMMOGRAPHY - BILATERAL SCREENING REASON FOR EXAM: Female, 53 years old. Routine annual screening examination. PERTINENT HISTORY: Non-contributory. TECHNIQUE: Digital bilateral breast azeb (3D mammographic acquisition) in the CC and MLO projections. 2-D mediolateral oblique (MLO) and craniocaudad (CC) views of both breasts were obtained. CAD: Full Field Digital Mammography with Computer Added Detection was performed. COMPARISON: Comparison is made with prior examination dated January 09, 2018 and December 11, 2016. FINDINGS: Breast Composition: The breasts are heterogeneously dense, which may obscure small masses. There are no dominant masses or suspicious calcifications. Stable appearance of the bilateral axillary lymph nodes. No other significant abnormalities are identified. There has been no significant change since the prior study. BI/SCREEN MAMM (CAD) W/AZEB BILAT IMPRESSION: Stable bilateral screening mammogram. Yearly follow-up mammogram recommended. (A) ASSESSMENT CATEGORY: BIRADS Category 2: Benign. A letter regarding these results will be sent to the patient by the facility within 30 days. Approximately 10% of breast cancers are not detected by mammography. A normal mammogram should not delay biopsy of a clinically suspicious abnormality. [id number] Electronically Signed: Guido Lagos, at 9:38 EDT , Service support ,
== END ==
PROVIDERS: Family Provider Family Medicine; PCP Family Medicine; Referring Provider Obstetrics & Gynecology; Visit Provider Obstetrics & Gynecology
DX: Z12.31 Encounter for screening mammogram for malignant neoplasm of breast (principal)
CPT/HCPCS: 77063; 77067

== ENCOUNTER → 2019-10-30 07:53 | Outpatient (CLI) | payer OTHER, SELFPAY ==
--- NOTE | 2019-10-30 07:56 | BI_ITS ---
MAMMOGRAPHY - BILATERAL SCREENING REASON FOR EXAM: Female, 53 years old. Routine annual screening examination. PERTINENT HISTORY: Non-contributory. TECHNIQUE: Digital bilateral breast azeb (3D mammographic acquisition) in the CC and MLO projections. 2-D mediolateral oblique (MLO) and craniocaudad (CC) views of both breasts were obtained. CAD: Full Field Digital Mammography with Computer Added Detection was performed. COMPARISON: Comparison is made with prior examination dated January 10, 2019 and January 09, 2018. FINDINGS: Breast Composition: The breasts are heterogeneously dense, which may obscure small masses. There are no dominant masses or suspicious calcifications. Stable small benign-appearing bilateral axillary lymph nodes. No other significant abnormalities are identified. There has been no significant change since the prior study. BI/SCREEN MAMM (CAD) W/AZEB BILAT IMPRESSION: Stable bilateral screening mammogram. Yearly follow-up mammogram recommended. (A) ASSESSMENT CATEGORY: BIRADS Category 2: Benign. A letter regarding these results will be sent to the patient by the facility within 30 days. Approximately 10% of breast cancers are not detected by mammography. A normal mammogram should not delay biopsy of a clinically suspicious abnormality. [id number] Electronically Signed: Guido Lagos, at 9:43 EDT , Service support ,
== END ==
PROVIDERS: PCP Family Medicine; Referring Provider Family Medicine; Visit Provider Family Medicine
DX: Z12.31 Encounter for screening mammogram for malignant neoplasm of breast (principal)
CPT/HCPCS: 77063; 77067

== ENCOUNTER 2020-01-28 12:05 | Outpatient (RCR) | payer OTHER, SELFPAY | END 2020-02-11 23:59 | LOC: EMPH 12:05 | PROVIDERS: PCP Family Medicine; Referring Provider Family Medicine Geriatric Medicine; Visit Provider Family Medicine Geriatric Medicine | DX: Z11.59 Encounter for screening for other viral diseases (principal) | CPT/HCPCS: 87635; U0003 ==

== ENCOUNTER 2020-03-11 10:51 | Outpatient (RCR) | payer OTHER, SELFPAY | END 2020-03-13 23:59 | LOC: EMPH 10:51 | PROVIDERS: PCP Family Medicine; Referring Provider Family Medicine Geriatric Medicine; Visit Provider Family Medicine Geriatric Medicine | DX: Z03.818 Encounter for observation for suspected exposure to other biological agents ruled out (principal) | CPT/HCPCS: 87426 ==

== ENCOUNTER 2020-04-07 12:58 | Outpatient (RCR) | payer OTHER, SELFPAY | END 2020-04-12 23:59 | LOC: EMPH 12:58 | PROVIDERS: PCP Family Medicine; Referring Provider Family Medicine Geriatric Medicine; Visit Provider Family Medicine Geriatric Medicine | DX: Z03.818 Encounter for observation for suspected exposure to other biological agents ruled out (principal) | CPT/HCPCS: 87426 ==

== ENCOUNTER 2020-04-26 11:15 | Outpatient (RCR) | payer OTHER, SELFPAY ==
--- NOTE | 2019-07-29 16:22 | MASS.EVAL_ITS ---
Massage Therapy Evaluation: Initial Evaluation Date: 07/28/2019 SUBJECTIVE: Dennis is a 53 year old female who was referred to the [facility] for a massotherapy evaluation by Dr. Smooth Higgins with the diagnosis of neck and back spasm. She presents today with the symptoms of pain, stiffness and tension in the neck, mid back, low back and hips. Dennis reports having a past medical history of neck, shoulders, back pain. She reports that her interscapular region has muscle tension radiating pain up to her neck with frequent tension he adaches. She reports having minimal improvement with exercise and stretching over the last few days. OBJECTIVE: Upon observation Dennis has some posture issues with her head and shoulders forward from the neutral position in sitting and standing. After examination and palpation, I found Dennis to have high muscle tension with tenderness and myofascial restrictions in her sub occipitals, levator scapulae, trapezius, rhomboids, scalenes, and thoracic paraspinals. Her QL?s, lumbar paraspinals, piriformis, glute medius and minimus all were very tight with fascial restrictions, tender points and trigger points. The first treatment consisted of a one hour massage to her upper body with myofascial release, muscle stripping, trigger point compression techniques, and cervical manual traction. ASSESSMENT: I feel that Dennis is a good candidate for massotherapy at this time. She had a favorable response to the first treatment with reduction in her muscle aches, pain and tension. She also had improvement in her cervical flexibility and low back flexibility. PLAN: The plan of care was reviewed with the patient. The patient is to be seen on an as needed basis for a total of ten sessions with the recommendation of once every month for a one hour treatment.
--- NOTE | 2020-05-13 14:30 | DS.PCM_ITS ---
Massage Therapy Discharge Summary: Discharge Date: 05/13/2020 Dennis was seen for a massotherapy evaluation on 07/28/2019 with the diagnosis of neck and back spasm. She was treated with nine sessions of massage therapy consisting of deep pressure soft tissue techniques, myofascial release and trigger point compression to her cervical, thoracic, lower back, lower extremities and hips. Dennis responded well to the therapy by reporting decreased tension and pain throughout her neck, shoulders, lower back and hips. Her goals for therapy were met throughout the treatment sessions. At this time this patient is being discharged from our care at [facility] facility.
== END 2020-04-26 19:00 | disposition home or self-care (01) ==
LOC: MASS 11:15
PROVIDERS: PCP Family Medicine; Referring Provider Family Medicine; Visit Provider Family Medicine
DX: M62.838 Other muscle spasm (principal); M62.830 Muscle spasm of back
CPT/HCPCS: 97124

== ENCOUNTER 2020-04-29 08:30 | Outpatient (RCR) | payer OTHER, SELFPAY ==
--- NOTE | 2020-03-30 09:36 | HP.PTEVAL_ITS ---
Patient's Visit Information TEETEE WALKER is a 54 year old F referred to Physical Therapy by Dr. Fran Gomez DPM with a diagnosis of L achilles tendonitis, plantar fasciitis, heel spurs. Date of Evaluation: 03/11/20 Physical Therapist: Rod Gaspar DPT - Visit Plan Frequency: 2x /Week Duration: 6 Weeks Plan: Inc L ankle ROM, focusing on dorsiflexion. Inc tissue tolerance of L achilles tendon over heel spur to inc tolerance to work activities. Inc L ankle strength focusing on eccentric plantar flexion initially. - Subjective Started bothering her about September. 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 Pain goes away when sitting and not moving, has occasional sharp pain. Pain is at its worst when standing and walking. Has been using a heel lift and insole for about a week and feels that it is helping. Takes Ibuprofen for pain and states it helps a little, also uses ice and heat. The pain wakes her up occasionally throughout the night. Has to loosen her shoe occasionally as it causes inc pain with pressure. Some days are better than others. Has a boot that holds ankle in dorsiflexion for when she sits awhile or goes to bed, but only wears it for an hour or 2 per day. - Pain L calc Pain Intensity (Out of 10): 6 Pain Intensity Range: 0, 10 Comment: Relieved when sitting, worse when standing and walking. - Objective POSTURE: Dec WB on LLE. No other notable deviations. PALPATION: Tenderness noted over posterior calcaneous. Tenderness also noted in achilles tendon, but less than the calcaneous. Palpable bump (heel spur) noted on post calcaneous. ROM: L DF 15, PF 45, INV 36, EVR 5 deg. R DF 26, PF 60, INV 35, EVR 25 deg. Pain felt at end range of L DF. MMT: L INV 3+/5 and painful in post calcaneous, 4-/5 elsewhere. R 4+/5 throughout. GAIT: Pt displays dec L stance phase, dec L heel off, and dec elma. Stair negotiation not assessed d/t pt stating she does not have to negotiate stairs often. - Goals Goal 1:: LTG: Pt to be I w/ HEP. Goal Time Frame: 4-6 Weeks Goal 2:: STG: Pt will display inc L ankle ROM by 50%. Goal Time Frame: 2-4 Weeks Goal 3:: LTG: Pt will display inc L ankle ROM to equal R ankle ROM. Goal Time Frame: 4-6 Weeks Goal 4:: STG: Pt will display inc L ankle strength by 1/2 grade. Goal Time Frame: 2-4 Weeks Goal 5:: LTG: Pt will display inc L ankle strength by 1 grade. Goal Time Frame: 4-6 Weeks Goal 6:: LTG: Pt will display a normalized gait pattern w/out notable deviations. Goal Time Frame: 4-6 Weeks - Rehabilitation Potential Physical Therapy Diagnosis: S/s consistent w/ L achilles tendonitis and heel spur. Pt displays inc L calcaneous and achilles tendon pain, dec L ankle ROM, dec L ankle strength, and dec ability to safely ambulate. PT intervention indicated to address stated deficitis and inc L ankle ROM and strength, inc tolerance to pain w/ heel spur, and inc ability to safely ambulate. Rehabilitation Potential: Good - Anticipated Interventions Patient/Client Instruction: Educate patient on: Condition, Plan of Care, Risk Factors, Benefits of Fitness Program For the Purpose of:: To foster healthy habits, To improve self management, To prevent re-injury Therapeutic Exercise to Include: Strength training, Power training, Endurance training, Flexibilty training, Gait and locomotor training, Passive ROM, Active ROM For the Purpose of:: To decrease pain, To increase ROM, To improve muscle performance and motor function, To increase tolerance to activity/condition/position, To improve ability of physical actions for home/community/work/leisure, To increase flexibility/ROM Manual Therapy Techniques to Include: Massage, Soft tissue mobilization For the Purpose of:: To decrease pain, To increase ROM, To improve nutrient delivery to tissue Ultrasound (thermal/non thermal): Yes For the Purpose of:: To decrease pain, To improve nutrient delivery to tissue Thank you for the opportunity to evaluate your patient. For Medicare and Medicare HMO plans, please review the plan of care and approve it. It will need to be FAXED BACK to us at [phone] for Medicare purposes. For Medicare only, by signing this I certify the plan of care. Please let me know if there are questions or concerns regarding this plan of care. Physician Signature: D ate:
== END 2020-04-29 19:00 | disposition home or self-care (01) ==
LOC: PT 08:30
PROVIDERS: PCP Family Medicine; Referring Provider Podiatrist; Visit Provider Podiatrist
DX: M76.62 Achilles tendinitis, left leg (principal); M72.2 Plantar fascial fibromatosis; M77.32 Calcaneal spur, left foot
CPT/HCPCS: 97035; 97110; 97140; 97161

== ENCOUNTER 2020-05-12 14:06 | Outpatient (RCR) | payer OTHER, SELFPAY | END 2020-05-13 23:59 | LOC: EMPH 14:06 | PROVIDERS: PCP Family Medicine; Referring Provider Family Medicine Geriatric Medicine; Visit Provider Family Medicine Geriatric Medicine | DX: Z03.818 Encounter for observation for suspected exposure to other biological agents ruled out (principal) | CPT/HCPCS: 87426 ==

== ENCOUNTER 2020-06-11 08:43 | Outpatient (RCR) | payer OTHER, SELFPAY | END 2020-06-13 23:59 | LOC: EMPH 08:43 | PROVIDERS: PCP Family Medicine; Referring Provider Family Medicine Geriatric Medicine; Visit Provider Family Medicine Geriatric Medicine | DX: Z03.818 Encounter for observation for suspected exposure to other biological agents ruled out (principal) | CPT/HCPCS: 87426 ==

== ENCOUNTER 2020-07-09 09:53 | Outpatient (RCR) | payer OTHER, SELFPAY | END 2020-07-11 23:59 | LOC: EMPH 09:53 | PROVIDERS: PCP Family Medicine; Referring Provider Family Medicine Geriatric Medicine; Visit Provider Family Medicine Geriatric Medicine | DX: Z03.818 Encounter for observation for suspected exposure to other biological agents ruled out (principal) | CPT/HCPCS: 87426 ==

== ENCOUNTER 2020-08-04 14:07 | Outpatient (RCR) | payer OTHER, SELFPAY | END 2020-08-11 23:59 | LOC: EMPH 14:07 | PROVIDERS: PCP Family Medicine; Referring Provider Family Medicine Geriatric Medicine; Visit Provider Family Medicine Geriatric Medicine | DX: Z03.818 Encounter for observation for suspected exposure to other biological agents ruled out (principal) | CPT/HCPCS: 87426 ==

== ENCOUNTER 2020-08-18 10:00 | Outpatient (RCR) | payer OTHER, SELFPAY ==
--- NOTE | 2020-07-14 16:12 | HP.PTEVAL ---
Patient's Visit Information TEETEE WALKER is a 54 year old F referred to Physical Therapy by SAMEER Garcia with a diagnosis of STRAIN OF MUSCLE,FASCIA AND TENDN CERCICAL,LUMBAR ,THORACIC. Date of Evaluation: 07/14/20 Physical Therapist: Oniel Cortes, PT, Cert MDT, OCS - Visit Plan Frequency: 2x /Week Duration: 4 Weeks Plan: PT INTEREVTIONS CERVICAL POSTURAL EX'S,YAYO EX'S,DLS ABD/BACK , - Subjective This 54 y/o female presents to physical therapy with neck ,back and thoracic pain. Patient injuried Jun 27 at [facility] lifting patients leg wrapping bending over . Intailly,tightness followed Sunday noticed severe right spine pain along with bialteral shoulder pain.Patient seen DR at [facility] recommended flexeral and predisone. Recommended PT. Patient location lumbar -thoracic -cervical spine with had and shoulder pain. Aggraveting factors standing,bending ,lifting ,sitting. Allevating factors TENS unit,lidocain cream. Denie parathesia/tingling. Bowel/bladder -. Coughing/sneezing-. Patient PATEL is 8/10. 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 Patients pain affects job deamds and [employer] tasks/. SOCIAL: . 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 GAIT: reciprocal pattern. PALAPTION: unremarkable. NEURO: denies parathesia/tingling ,reflexes C5-6-7,L3-4,L4-5,L5-S1 2/3. AROM: BUE/LE WFL. MMT: BUE 4/5,QUADS/HAMS/HIP/ANKLE 4/5. CERVICAL ROM: flexion min loss,extension min loss,lateral flexion min loss,lateral flexion min loss,retraction WFL. THORACIC ROM: flexion min loss,extension min loss ,rotation min loss. LUMBAR ROM: flexion WFL,extension min ,side glides - Special Tests C/S Radiculapathy - Left Upper limb tension test: Negative C/S Radiculapathy - Right Upper limb tension test: Negative C/S Radiculapathy - Left Spurlings: Negative C/S Radiculapathy - Right Spurlings: Negative C/S Radiculapathy - Left Cervical distraction: Negative C/S Radiculapathy - Right Cervical distraction: Negative Sharp [place]: Negative Vertebral Artery Test: Negative Alar Ligament Test: Negative Cervical Sitting: Protrusion - Mechanical Response: No effect Cervical Sitting: Protrusion - Symptoms During Testing: No effect Cervical Sitting: Protrusion - Symptoms After Testing: No effect Cervical Sitting: Retraction - Mechanical Response: No effect Cervical Sitting: Retraction - Symptoms During Testing: Decreases Cervical Sitting: Retraction - Symptoms After Testing: Better Cervical Sitting: Flexion - Mechanical Response: No effect Cervical Sitting: Flexion - Symptoms During Testing: Increases Cervical Sitting: Flexion - Symptoms After Testing: No worse Thoracic Sitting: Flexion - Mechanical Response: No effect Thoracic Sitting: Flexion - Symptoms During Testing: Increases Thoracic Sitting: Flexion - Symptoms After Testing: No worse Thoracic Sitting: Extension - Mechanical Response: No effect Thoracic Sitting: Extension - Symptoms During Testing: Decreases Thoracic Sitting: Extension - Symptoms After Testing: Better Thoracic Sitting: Right rotation - Mechanical Response: No effect Thoracic Sitting: Right Rotation - Symptoms During Testing: No effect Thoracic Sitting: Right Rotation - Symptoms After Testing: No effect Thoracic Sitting: Left rotation - Mechanical Response: No effect Thoracic Sitting: Left Rotation - Symptoms During Testing: No effect Thoracic Sitting: Left Rotation - Symptoms After Testing: No effect L/S Slump test left side: Positive L/S Slump test right side: Positive L/S Left Straight Leg Raise: Negative L/S Right Straight Leg Raise: Negative - Goals Goal 1:: Patient to be I with HEP Goal Time Frame: 4-6 Weeks Goal 2:: Patient to decrease pain cervical/thoracic/lumbar by 60-70% or >to improve function. Goal Time Frame: 4-6 Weeks Goal 3:: Patient to improve spine ROM for thoracic lumbar cervical for function of recovery. Goal Time Frame: 4-6 Weeks Goal 4:: Patient to improve posture/body mechanics to improve function Goal Time Frame: 4-6 Weeks Goal 5:: Patient to improve back owestry score by 5 points or > to improve QOL. - Rehabilitation Potential Physical Therapy Diagnosis: This patient has pain incervical,lumbar and thoracic from work injury lifting heavy patient legs causing strain to lumbar ,cervical and thoracic with pain and decrease function of recovery and job demands thus benifit from skilled PT Rehabilitation Potential: Good - Anticipated Interventions Patient/Client Instruction: Educate patient on: Condition, Plan of Care For the Purpose of:: To decrease pain, To increase ROM, To improve muscle performance and motor function, To improve ability to perform ADL's, To increase tolerance to activity/condition/position, To improve ability of physical actions for home/community/work/leisure, To improve health of tissue, To decrease soft tissue restriction, To increase flexibility/ROM, To reduce risk of recurrence, To improve ability to perform tasks related to life management Therapeutic Exercise to Include: Strength training, Endurance training, Postural training, Flexibilty training, Dynamic Lumbar Stabilization, Yayo Exercises For the Purpose of:: To decrease pain, To increase ROM, To improve muscle performance and motor function, To improve ability to perform ADL's, To increase tolerance to activity/condition/position, To improve performance and independence with ADL's, To improve ability of physical actions for home/community/work/leisure, To improve health of tissue, To decrease soft tissue restriction, To increase flexibility/ROM, To reduce risk of recurrence, To prevent re-injury TENS: Yes IF ES: Yes Cryotherapy (ice pack, ice massage): Yes Thermo therapy (hot pack): Yes Ultrasound (thermal/non thermal): Yes For the Purpose of:: To decrease pain, To improve nutrient delivery to tissue, To increase oxygenation perfusion, To improve health of tissue, To decrease soft tissue restriction Thank you for the opportunity to evaluate your patient. For Medicare and Medicare HMO plans, please review the plan of care and approve it. It will need to be FAXED BACK to us at [phone] for Medicare purposes. For Medicare only, by signing this I certify the plan of care. Please let me know if there are questions or concerns regarding this plan of care. Physician Signature: Date:
--- NOTE | 2021-01-05 13:58 | HP.PTDCSUM ---
It has been my pleasure to treat TEETEE WALKER referred by SAMEER Garcia, with the diagnosis of STRAIN OF MUSCLE,FASCIA AND TENDN CERCICAL,LUMBAR ,THORACIC for a total of 10 visit(s). Discharge Date: 08/18/20 Please see the following information for a summary of their discharge status. Subjective: I think ready to go back to work. Mikd ache left LP Right Back Pain Intensity (Out of 10): 1 Right Neck Pain Intensity (Out of 10): 0 % Improvement: 85 Objective/Function: POSTURE: WFL. GAIT: RECIPROCAL PATTERN. LUMBAR ROM: flexion/extension WFL. MMT: BLE 4/5. CERVICAL ROM: flexion /extension/lateral flexion /rotation min loss. MMT: BUE 4/5 Goal 1:: Patient to be I with HEP Goal Progress: Goal Met Goal 2:: Patient to decrease pain cervical/thoracic/lumbar by 60-70% or >to improve function. Goal Progress: Goal Met Goal 3:: Patient to improve spine ROM for thoracic lumbar cervical for function of recovery. Goal Progress: Goal Met Goal 4:: Patient to improve posture/body mechanics to improve function Goal Progress: Goal Met Goal 5:: Patient to improve back owestry score by 5 points or > to improve QOL. Goal Progress: Goal Met Plan: RTD - Discharge Comments: HEP AND GYM If there are questions or concerns regarding this patient's physical therapy, please feel free to call me at [phone]. Thank you for the referral of this patient. Sincerely, Oniel Cortes, PT, Cert MDT, OCS Balance/Gait/Functional tests - Balance/Special Test Scores Oswestry Low Back Score: 5
== END 2020-08-18 19:00 | disposition home or self-care (01) ==
LOC: PT 10:00
PROVIDERS: PCP Family Medicine; Referring Provider Physician Assistant; Visit Provider Physician Assistant
DX: S16.1XXD Strain of muscle, fascia and tendon at neck level, subsequent encounter (principal); S29.019D Strain of muscle and tendon of unspecified wall of thorax, subsequent encounter; S39.012D Strain of muscle, fascia and tendon of lower back, subsequent encounter
CPT/HCPCS: 87426; 97014; 97035; 97110; 97162; G0283

== ENCOUNTER 2020-09-10 13:52 | Outpatient (RCR) | payer OTHER, SELFPAY ==
[2020-08-04 09:25] VITALS: BMI 29.5
== END 2020-09-10 23:59 ==
LOC: EMPH 13:52
PROVIDERS: PCP Family Medicine; Referring Provider Family Medicine Geriatric Medicine; Visit Provider Family Medicine Geriatric Medicine
DX: Z03.818 Encounter for observation for suspected exposure to other biological agents ruled out (principal)
CPT/HCPCS: 87426

== ENCOUNTER 2020-10-28 13:27 | Outpatient (RCR) | payer OTHER, SELFPAY | END 2020-11-10 23:59 | LOC: EMPH 13:27 | PROVIDERS: PCP Family Medicine; Referring Provider Family Medicine Geriatric Medicine; Visit Provider Family Medicine Geriatric Medicine | DX: Z03.818 Encounter for observation for suspected exposure to other biological agents ruled out (principal) | CPT/HCPCS: 87426 ==

== ENCOUNTER → 2020-10-29 10:14 | Outpatient (CLI) | payer OTHER, SELFPAY ==
[2020-08-04 09:25] VITALS: BMI 29.5
--- NOTE | 2020-10-29 10:15 | BI_ITS ---
MAMMOGRAPHY - BILATERAL SCREENING REASON FOR EXAM: Female, 54 years old. Routine annual screening examination. PERTINENT HISTORY: Non-contributory. TECHNIQUE: Digital bilateral breast azeb (3D mammographic acquisition) in the CC and MLO projections. 2-D mediolateral oblique (MLO) and craniocaudad (CC) views of both breasts were obtained. CAD: Full Field Digital Mammography with Computer Added Detection was performed. COMPARISON: Comparison is made with prior study dated 10/30/2019 and 01/10/2019. FINDINGS: Breast Composition: The breasts are heterogeneously dense, which may obscure small masses. There are no dominant masses or suspicious calcifications. Stable small benign-appearing bilateral axillary lymph nodes. No other significant abnormalities are identified. There has been no significant change since the prior study. BI/SCRN MAMM (CAD)W/AZEB BILAT IMPRESSION: Stable bilateral screening mammogram. Yearly follow-up mammogram recommended. (A) ASSESSMENT CATEGORY: BIRADS Category 2: Benign. A letter regarding these results will be sent to the patient by the facility within 30 days. Approximately 10% of breast cancers are not detected by mammography. A normal mammogram should not delay biopsy of a clinically suspicious abnormality. [id number] Electronically Signed: Guido Lagos MD at 11:08 EDT , Service support ,
== END ==
PROVIDERS: PCP Family Medicine; Referring Provider Family Medicine; Visit Provider Family Medicine
DX: Z12.31 Encounter for screening mammogram for malignant neoplasm of breast (principal)
CPT/HCPCS: 77063; 77067

== ENCOUNTER 2020-12-03 10:30 | Outpatient (RCR) | payer OTHER, SELFPAY | END 2020-12-11 23:59 | LOC: EMPH 10:30 | PROVIDERS: PCP Family Medicine; Referring Provider Family Medicine Geriatric Medicine; Visit Provider Family Medicine Geriatric Medicine | DX: Z03.818 Encounter for observation for suspected exposure to other biological agents ruled out (principal) | CPT/HCPCS: 87426 ==

== ENCOUNTER 2021-01-06 12:05 | Outpatient (RCR) | payer OTHER, SELFPAY ==
[2020-08-04 09:25] VITALS: BMI 29.5
== END 2021-01-11 23:59 ==
LOC: EMPH 12:05
PROVIDERS: PCP Family Medicine; Referring Provider Family Medicine Geriatric Medicine; Visit Provider Family Medicine Geriatric Medicine
DX: Z03.818 Encounter for observation for suspected exposure to other biological agents ruled out (principal)
CPT/HCPCS: 87426

== ENCOUNTER 2021-02-10 13:12 | Outpatient (RCR) | payer OTHER, SELFPAY | END 2021-02-10 23:59 | LOC: EMPH 13:12 | PROVIDERS: PCP Family Medicine; Referring Provider Family Medicine Geriatric Medicine; Visit Provider Family Medicine Geriatric Medicine | DX: Z03.818 Encounter for observation for suspected exposure to other biological agents ruled out (principal) | CPT/HCPCS: 87426 ==

== ENCOUNTER 2021-03-10 12:22 | Outpatient (RCR) | payer OTHER, SELFPAY | END 2021-03-13 23:59 | LOC: EMPH 12:22 | PROVIDERS: PCP Family Medicine; Referring Provider Family Medicine Geriatric Medicine; Visit Provider Family Medicine Geriatric Medicine | DX: Z03.818 Encounter for observation for suspected exposure to other biological agents ruled out (principal) | CPT/HCPCS: 87426 ==

== ENCOUNTER 2021-04-09 09:58 | Outpatient (RCR) | payer OTHER, SELFPAY | END 2021-04-12 23:59 | LOC: EMPH 09:58 | PROVIDERS: PCP Family Medicine; Referring Provider Family Medicine Geriatric Medicine; Visit Provider Family Medicine Geriatric Medicine | DX: Z03.818 Encounter for observation for suspected exposure to other biological agents ruled out (principal) | CPT/HCPCS: 87426 ==

== ENCOUNTER 2021-04-18 11:15 | Outpatient (RCR) | payer OTHER, SELFPAY ==
--- NOTE | 2020-07-19 15:27 | MASS.EVAL_ITS ---
Massage Therapy Evaluation: Initial Evaluation Date: 07/19/2020 SUBJECTIVE: Dennis is a 54 year old female who was referred to the [facility] for a massotherapy evaluation by Dr. Gomez with the diagnosis of left foot and lower leg pain. She presents today with the symptoms of pain, stiffness and tension in the neck, head, mid back, low back, hips, and left foot and left lower leg. Dennis reports having a past medical history of chronic neck and back pain and complains of five or more headaches a week. She reports having minimal imp rovement with exercise and stretching over the last few months. OBJECTIVE: Upon observation Dennis has some posture issues with her head and shoulders forward from the neutral position in sitting and standing. After examination and palpation, I found Dennis to have high muscle tension with tenderness and myofascial restrictions in her sub occipitals, levator scapulae, trapezius, rhomboids, scalenes, and thoracic paraspinals. Her QL?s, lumbar paraspinals, piriformis, ITB?s, glute medius and minimus all were very tight with fascial restrictions, tender points and trigger points. The first treatment consisted of a one hour massage to her upper body and left lower leg and left foot with myofascial release, muscle stripping, trigger point compression techniques, and cervical manual traction. ASSESSMENT: I feel that Dennis is a good candidate for massotherapy at this time. She had a favorable response to the first treatment with reduction in her muscle aches, pain and tension. She also had improvement in her cervical flexibility and low back flexibility. PLAN: The plan of care was reviewed with the patient. The patient is to be seen on an as needed basis for a total of ten sessions with the recommendation of once every month for a one hour treatment.
--- NOTE | 2021-04-18 15:05 | DS.PCM_ITS ---
Massage Therapy Discharge Summary: Discharge Date: 04/18/2021 Dennis was seen for a massotherapy evaluation on 07/19/2020 with the diagnosis of left lower leg and foot pain. She was treated with ten sessions of massage therapy consisting of deep pressure soft tissue techniques, myofascial release and trigger point compression to her cervical, thoracic, lower back, lower extremities and hips. Dennis responded well to the therapy by reporting decreased tension and pain throughout her neck, shoulders, lower back and hips. Her goals for therapy were met throughout the treatment sessions. At this time this patient is being discharged from our care at [facility] facility.
== END 2021-04-18 19:00 | disposition home or self-care (01) ==
LOC: MASS 11:15
PROVIDERS: PCP Family Medicine; Referring Provider Podiatrist; Visit Provider Podiatrist
DX: M79.672 Pain in left foot (principal); M79.662 Pain in left lower leg
CPT/HCPCS: 97124

== ENCOUNTER 2021-05-04 11:07 | Outpatient (RCR) | payer OTHER, SELFPAY ==
[2021-05-04 08:43] LABS: Probe Check PASS; Specimen Processing Control PASS
== END 2021-05-13 23:59 ==
LOC: EMPH 11:07
PROVIDERS: PCP Family Medicine; Referring Provider Family Medicine Geriatric Medicine; Visit Provider Family Medicine Geriatric Medicine
DX: Z03.818 Encounter for observation for suspected exposure to other biological agents ruled out (principal)
CPT/HCPCS: 87426; 87635; U0005; U0003

== ENCOUNTER 2021-05-10 10:21 | Emergency (ER) | payer OTHER, SELFPAY ==
[2021-05-10 10:22] VITALS: BP 123/77; PULSE 91; RESP 18; TEMP 37.6; O2SAT 100; BMI 29.5
[2021-05-10 10:36] VITALS: BP 123/77; PULSE 91; RESP 18; TEMP 37.6; O2SAT 100
--- NOTE | 2021-05-10 10:40 | EKG12_ITS ---
Test Reason : SOB Blood Pressure : / mmHG Vent. Rate : 092 BPM Atrial Rate : 092 BPM P-R Int : 166 ms QRS Dur : 082 ms QT Int : 334 ms P-R-T Axes : 048 -07 002 degrees QTc Int : 413 ms Normal sinus rhythm Normal ECG Confirmed by BANDAR CAMACHO MD ([id number]), map editor DANA LOVELL ([id number]) on 05/12/2021 9:51:35 AM Referred By: Confirmed By:BANDAR CAMACHO MD
--- NOTE | 2021-05-10 10:50 | RAD_ITS ---
INDICATION: chest pain EXAMINATION/TECHNIQUE: X-RAY - XR Chest 1 View COMPARISON: 06/19/2016. FINDINGS: LINES/DEVICES: None. LUNGS: Prominence of the bronchovascular interstitial lung markings visualized in bilateral lung rodriguez with scattered areas of patchy airspace opacification visualized, mild blunting of the left costophrenic angle is seen, no evidence of pneumothorax or pleural effusion. No evidence of parenchymal lung mass. MEDIASTINUM AND CARDIOVASCULAR STRUCTURES: Cardiac silhouette not enlarged. BONES AND SOFT TISSUES: Degenerative bone changes, internal fixation of the left mid humerus is unremarkable. RAD/Chest 1 View (Portable) IMPRESSION: Bronchovascular prominence with patchy airspace airspace opacification seen, correlate for Covid 19 disease or multifocal pneumonia. Electronically Signed: Wilfredo Medina MD at 12:05 EST Tel , Service support ,
[2021-05-10 10:58] LABS: Absolute Lymphocyte Count 0.63 X10^3/uL (0.83-4.51); Absolute Neutrophil Count 6.3 X10^3/uL (2.0-7.7); Basophil# 0.02 X10^3/uL; Basophil% 0.3 % (0-1); Hematocrit 43.2 % (37-47); Hemoglobin 14.3 g/dL (12.0-15.0); Lymphocyte # 0.63 X10^3/ul (0.83-4.51); Lymphocyte % 8.8 % (19-41); Mean Corp Hgb Conc 33.1 g/dL (32-36); Mean Corpuscular Hgb 28.9 pg (27.0-32.0); Mean Corpuscular Volume 87.3 fL (81-99); Mean Platelet Vol. 9.3 fl (6.2-12.0); Monocyte# 0.22 X10^3/uL; Monocyte% 3.1 % (0-10); NRBC Flagged by Analyzer 0 % (0-5); Neutrophil # 6.25 X10^3/uL (2.7-7.7); Neutrophil % 87.5 % (47-70); Platelet Count 185 K/mm3 (150-450); RBC Distribution Width CV 11.9 % (11.6-14.6); Red Blood Count 4.95 M/mm3 (4.2-5.4); White Blood Count 7.1 K/mm3 (4.4-11.0)
--- NOTE | 2021-05-10 11:05 | CT_ITS ---
STUDY: CTA CHEST REASON FOR EXAM: Female, 55 years old. pulmonary embolism covid 19 RADIATION DOSAGE (If Supplied By Facility): CTDIvol = ( 10.45 ) mGy, DLP = ( 344.09 ) mGycm TECHNIQUE: The examination was performed with the intravenous administration of IV 100mL Isovue-370. Post-processing of the angiographic images was performed, with multiplanar reformation and 3D reconstruction. Individualized dose optimization techniques were used for this CT. COMPARISON: Chest x-ray earlier today FINDINGS: Normal enhancement of the main pulmonary artery and right and left pulmonary arteries. Normal enhancement of the bilateral peripheral pulmonary arteries. There is no demonstrated pulmonary embolism. Normal thoracic aorta and visualized great vessels. There is no demonstrated aortic dissection. Normal heart and pericardium. Normal mediastinum. Normal hilar regions. Normal visualized trachea and bronchi. The lungs are well expanded. Bilateral patchy groundglass opacities consistent with moderate subsegmental atelectasis or pneumonitis. Normal pleura. Normal chest wall structures. Normal osseous structures. Normal visualized upper abdomen. CT/CTA Chest W/WO Contrast IMPRESSION: 1. No CT evidence of pulmonary embolism. 2. Moderate bilateral subsegmental atelectasis or pneumonitis. Commonly reported imaging features of March 01 pneumonia are present. Other processes such as influenza pneumonia and organized pneumonia as can be seen in drug toxicity and connective tissue disease can cause a similar imaging pattern. Electronically Signed: Javier Lazar MD at 12:04 EST Tel , Service support ,
[2021-05-10 11:06] LABS: International Normalized Ratio 1.1; Prothrombin Time (Protime)PT. 13.7 SECONDS (11.7-14.9)
--- NOTE | 2021-05-10 11:06 | EDS_ITS ---
HPI History of Present Illness Chief Complaint: Shortness of Breath Narrative Narrative: 55-year-old female arriving to the emergency department out of concerns with COVID-19. Patient states that she is on day 6 of Covid and was tested here at [facility]. Patient states that she is feeling fatigued and is having chest and back pain in addition to dyspnea. She notes diarrhea and fevers. She was not vaccinated [facility] Medical History History of pneumonia Kidney stones Knee pain Shoulder pain Home Medications albuterol sulfate [Ventolin HFA] 2 puff INHALATION Q4H PRN PRN #1 inhaler 05/10/21 [Rx Last Taken Unknown] dexamethasone 6 mg PO DAILY #7 tab 05/10/21 [Rx Last Taken Unknown] ibuprofen 600 mg PO Q6H PRN PRN #30 tablet 05/10/21 [Rx Last Taken Unknown] Allergy/AdvReac Type Severity Reaction Status Date / Time Penicillins Allergy Mild Hives Verified 05/10/21 10:26 codeine phosphate Allergy Rash Verified 05/10/21 10:26 [From Tylenol-Codeine #3] piperacillin sodium Allergy Hives Verified 05/10/21 10:26 [From Zosyn] tazobactam sodium Allergy Hives Verified 05/10/21 10:26 [From Zosyn] acetaminophen [From Tylenol] AdvReac Hives, Verified 05/10/21 10:26 burning feeling, n/v Family History Mother Cancer Grandmother Heart disease Surgical History Hx of knee surgery Social History Smoking Status: Never smoker alcohol intake: current alcohol intake frequency: a few times a week Alcohol type: wine ROS ROS ED Constitutional Constitutional ED: Reports chills, fever(s) and sweats; Denies weight loss Eyes Eyes: Denies change in vision or diplopia ENT ENT ED: Reports rhinorrhea; Denies ear pain or sore throat Cardiovascular Cardiovascular: Reports chest pain; Denies orthopnea, palpitations or racing heartbeat Respiratory/Chest Respiratory/Chest: Reports cough and dyspnea; Denies orthopnea Gastrointestinal Gastrointestinal: Reports diarrhea; Denies abdominal pain, nausea or vomiting Genitourinary Genitourinary ED: Denies dysuria, hematuria or urinary frequency Musculoskeletal Musculoskeletal: Reports myalgias; Denies arthralgias Integumentary Denies abscess or rash Neurologic Neurologic: Reports headache(s); Denies weakness Psychiatric Psychiatric: Denies anxiety, depression, suicidal ideation or suicidal thoughts Endocrine Endocrinology: Denies polydipsia, polyphagia or polyuria Allergic/Immunologic Allergic/Immunologic ED: Denies mouth swelling, tongue swelling or urticaria EXAM Physical Exam Const Vital Signs: 05/10/21 10:22 05/10/21 10:36 05/10/21 10:53 Temperature 99.7 F H 99.7 F H Temperature Source Oral Oral Pulse Rate 91 91 Respiratory Rate 18 18 Respiratory Effort Normal Non-Labored Respiratory Pattern Tachypnea Blood Pressure 123/77 H 123/77 H Blood Pressure Mean 92 92 Pulse Ox 100 100 Oxygen Delivery Method Room Air Room Air Room Air 05/10/21 12:25 Temperature 99.7 F H Temperature Source Oral Pulse Rate 90 Respiratory Rate 18 Respiratory Effort Respiratory Pattern Blood Pressure 120/74 Blood Pressure Mean 89 Pulse Ox 100 Oxygen Delivery Method Room Air Positive well nourished and well developed General Appearance ED: well developed HEENT Reports normocephalic, head/scalp atraumatic, TM's clear and moist mucous membranes Negative for trauma Tympanic Membrane ED: Yes TM's clear Eyes PERRL and EOMs intact bilaterally Neck no lymphadenopathy, supple and no JVD Resp normal respiratory effort and clear to auscultation bilaterally Cardio regular rate, regular rhythm and no murmurs GI normal to inspection, nondistended, normoactive bowel sounds and non-tender Palpation: soft Back/Spine no CVA tenderness and normal ROM Extremity normal to inspection General Extremety ED: Negative for edema General Extremity: Negative for edema Neuro oriented x3 and CN's II-XII intact bilaterally Sensorium / Orientation: alert Motor Exam: strength 5/5 throughout Psych mental status grossly normal Mood & Affect: Negative for depressed or tearful Skin no rashes or lesions noted and no wounds MDM MDM MDM Narrative Medical decision making narrative: Basic blood work obtained and negative. CTA of the chest does not demonstrate any pulmonary embolism but does reveal a moderate amount of pneumonitis. I expressed my concerns to the patient as she is unvaccinated and this is already day 6 that she may worsen. I will start her on dexamethasone can refer her for monoclonal antibody treatment. Patient understands return instructions will return if worsening or concerns The following information was communicated to the patient or caregiver: Monoclonal antibody infusion is not an FDA approved drug. The FDA has authorized the emergency use of monoclonal antibody therapy. The patient had the option to refuse or accept treatment with monoclonal antibody therapy. The patient was informed that the number of people treated with monoclonal antibody therapy at this time is small. The potential benefits and the potential risks of monoclonal antibody therapy are not fully known. Potential benefits of monoclonal antibody include a reduced risk of progressing to severe COVID-19 infection. Potential risks or side effects of monoclonal antibody therapy include allergic reactions, side effects from injection including brief pain, bleeding, bruising of the skin, soreness, swelling, possible infection at the infusion site. The patient stated understanding of this information communicated and wished to proceed with monoclonal antibody infusion therapy. The patient is appropriate for the Monoclonal Antibody Infusion. The patient states understanding of this information communicated and wishes to proceed with monoclonal antibody infusion therapy. Patient agrees to receive either Balanivimab/Etesvimab or Casirivimab/Imdevimab upon availability. Lab Data Attestation: I reviewed the patient's lab results. Labs: Laboratory Results - last 24 hr 05/10/21 05/10/21 05/10/21 10:49 10:49 10:49 WBC 7.1 RBC 4.95 Hgb 14.3 Hct 43.2 MCV 87.3 MCH 28.9 MCHC 33.1 RDW Std Deviation 38.0 RDW Coeff of Memo 11.9 Plt Count 185 MPV 9.3 Immature Gran % (Auto) 0.300 Neut % (Auto) 87.5 H Lymph % (Auto) 8.8 L [place] % (Auto) 3.1 Eos % (Auto) 0.0 Baso % (Auto) 0.3 Absolute Neuts (auto) 6.3 Absolute Lymphs (auto) 0.63 L Nucleated RBC % 0 PT 13.7 INR 1.1 Sodium Cancelled Potassium Cancelled Chloride Cancelled Carbon Dioxide Cancelled Anion Gap Cancelled BUN Cancelled Creatinine Cancelled Estim Creat Clear Calc Cancelled Est GFR (MDRD) Af Amer Cancelled Est GFR (MDRD) Non-Af Cancelled BUN/Creatinine Ratio Cancelled Glucose Cancelled Calcium Cancelled Troponin I High Sens Cancelled 05/10/21 11:16 WBC RBC Hgb Hct MCV MCH MCHC RDW Std Deviation RDW Coeff of Memo Plt Count MPV Immature Gran % (Auto) Neut % (Auto) Lymph % (Auto) [place] % (Auto) Eos % (Auto) Baso % (Auto) Absolute Neuts (auto) Absolute Lymphs (auto) Nucleated RBC % PT INR Sodium 136 Potassium 3.5 Chloride 99 Carbon Dioxide 29.0 Anion Gap 8 BUN 12 Creatinine 0.78 Estim Creat Clear Calc 66.62 Est GFR (MDRD) Af Amer 98 Est GFR (MDRD) Non-Af 81 BUN/Creatinine Ratio 15.4 Glucose 110 H Calcium 8.9 Troponin I High Sens 5 Radiography Diagnostic Testing: Clinical Impression(s) from Imaging Studies Chest X-Ray 05/10/21 10:50 IMPRESSION: Bronchovascular prominence with patchy airspace airspace opacification seen, correlate for Covid 19 disease or multifocal pneumonia. Electronically Signed: Wilfredo Medina MD at 12:05 EST Tel , Service support , Chest CTA 05/10/21 11:05 IMPRESSION: 1. No CT evidence of pulmonary embolism. 2. Moderate bilateral subsegmental atelectasis or pneumonitis. Commonly reported imaging features of March 01 pneumonia are present. Other processes such as influenza pneumonia and organized pneumonia as can be seen in drug toxicity and connective tissue disease can cause a similar imaging pattern. Electronically Signed: Javier Lazar MD at 12:04 EST Tel , Service support , EKG Initial EKG: Attestation: I personally reviewed and interpreted this EKG as follows: Comments: Normal sinus rhythm with a ventricular rate of 92 bpm Discharge Plan Triage Chief Complaint: Shortness of Breath ED Provider: Raza Quintana Dx/Rx/DC Orders Clinical Impression: COVID-19, Chest pain Instructions: Coronavirus Disease 2019 (COVID-19): Caring for Yourself or Others Prescriptions: New dexamethasone 6 MG tablet 6 mg PO DAILY Qty: 7 RF: 0 ibuprofen 600 MG tablet 600 mg PO Q6H PRN PRN (Reason: fever or pain) Qty: 30 RF: 0 albuterol sulfate [Ventolin HFA] 1 INHALER inhaler 2 puff inhalation Q4H PRN PRN (Reason: Wheezing) Qty: 1 RF: 0 Primary Care Provider: Smooth Higgins Referrals: Smooth Higgins MD [Primary Care Provider] - As Needed Disposition Disposition: Home, Self Care
[2021-05-10] MEDS: Contrast Allergy Safety Check IV (11:19)
[2021-05-10 11:42] LABS: Anion Gap 8 (5-15); BUN 12 mg/dL (7-18); BUN/Creat Ratio 15.4 RATIO (10-20); Calcium,Total 8.9 mg/dL (8.5-10.1); Chloride 99 mmol/L (98-107); Creatinine, Serum 0.78 mg/dL (0.55-1.02); EST Glomerular Filtration Rate 81 mL/min (>60); Est Glom Filt Rate - Afr Amer 98 mL/min (>60); Estimated Creatinine Clearance 66.62 ml/min; Glucose 110 mg/dL (74-106); Potassium 3.5 mmol/L (3.5-5.1); Sodium Level 136 mmol/L (136-145); Troponin-I HS 5 pg/mL (3.0-54.0)
[2021-05-10 12:25] VITALS: BP 120/74; PULSE 90; RESP 18; TEMP 37.6; O2SAT 100
[2021-05-10 13:15] VITALS: BP 140/90; PULSE 99; RESP 18; O2SAT 95
== END 2021-05-10 13:21 | disposition home or self-care (01) ==
PROVIDERS: Emergency Provider Emergency Medicine; PCP Family Medicine
DX: U07.1 COVID-19 (principal); R06.02 Shortness of breath
CPT/HCPCS: 36415; 71045; 71275; 80048; 84484; 85025; 85610; 93005; 99284; Q9967

== ENCOUNTER 2021-05-11 10:02 | Outpatient (CLI) | payer OTHER, SELFPAY ==
[2021-05-11 10:19] VITALS: BP 112/65; PULSE 110; RESP 20; TEMP 37.3; O2SAT 92; BMI 29.5
[2021-05-11] MEDS: 0.9% Saline Lock 10 ML Syringe IV (10:21)
[2021-05-11 10:53] VITALS: BP 96/52; PULSE 110; RESP 16; TEMP 37.3; O2SAT 92
[2021-05-11 11:53] VITALS: BP 99/58; PULSE 85; RESP 18; TEMP 37.4; O2SAT 92
== END 2021-05-11 11:53 | disposition home or self-care (01) ==
LOC: MS3OUT 10:02 → MS3 10:03
PROVIDERS: PCP Family Medicine; Referring Provider Emergency Medicine; Visit Provider Emergency Medicine
DX: Z23 Encounter for immunization (principal); U07.1 COVID-19
CPT/HCPCS: J7050; M0245; Q0245; A4216

== ENCOUNTER 2021-05-12 09:10 | Inpatient (IN) | payer OTHER, SELFPAY ==
[2021-05-12] VITALS (14 sets, daily range): BP systolic 102–117; BP diastolic 53–72; PULSE 63–90; RESP 17–26; TEMP 36.7–37.4; O2SAT 84–96; BMI 30.1
--- NOTE | 2021-05-12 09:36 | ED.VIS.DYS ---
HPI History of Present Illness Chief Complaint: Shortness of Breath Narrative Narrative: Patient presenting for evaluation due to complications of coronavirus. Patient reports that she has been sick with Covid since 05/04. Patient was seen as an outpatient earlier this week on Sunday and was started on outpatient course of Decadron. Patient reports that she has had persistent cough and fever. Patient states that she has had decreased p.o. intake and decreased appetite. She denies significant diarrhea. Patient reports that she had increasing shortness of breath today that was the reason that she presented to the emergency department. [facility] Medical History History of pneumonia Kidney stones Knee pain Shoulder pain Home Medications albuterol sulfate [Ventolin HFA] 2 puff INHALATION Q4H PRN PRN #1 inhaler 05/10/21 [Rx Last Taken Unknown] dexamethasone 6 mg PO DAILY #7 tab 05/10/21 [Rx Last Taken Unknown] ibuprofen 600 mg PO Q6H PRN PRN #30 tablet 05/10/21 [Rx Last Taken Unknown] Allergy/AdvReac Type Severity Reaction Status Date / Time Penicillins Allergy Mild Hives Verified 05/12/21 09:17 codeine phosphate Allergy Rash Verified 05/12/21 09:17 [From Tylenol-Codeine #3] piperacillin sodium Allergy Hives Verified 05/12/21 09:17 [From Zosyn] tazobactam sodium Allergy Hives Verified 05/12/21 09:17 [From Zosyn] acetaminophen [From Tylenol] AdvReac Hives, Verified 05/12/21 09:17 burning feeling, n/v Family History Mother Cancer Grandmother Heart disease Surgical History Hx of knee surgery Social History Smoking Status: Never smoker alcohol intake: current alcohol intake frequency: a few times a week Alcohol type: wine ROS ROS ED Constitutional Constitutional ED: Reports chills and fever(s) ENT ENT ED: Denies rhinorrhea Cardiovascular Cardiovascular: Denies chest pain Respiratory/Chest Respiratory/Chest: Reports cough, dyspnea and other Details: Decreased p.o. intake Gastrointestinal Gastrointestinal: Denies abdominal pain, diarrhea, nausea or vomiting Genitourinary Genitourinary ED: Denies dysuria or hematuria Musculoskeletal Musculoskeletal: Denies back pain Integumentary Denies rash Neurologic Neurologic: Denies paresthesias or weakness Psychiatric Psychiatric: Denies depression Endocrine Endocrinology: Denies fatigue Allergic/Immunologic Allergic/Immunologic ED: Denies urticaria EXAM Physical Exam Const Vital Signs: 05/12/21 09:11 05/12/21 09:14 05/12/21 09:15 Temperature 99.3 F H 99.3 F H Temperature Source Oral Oral Pulse Rate 90 90 Respiratory Rate 26 H 26 H Respiratory Effort Short of Breath Respiratory Depth Deep Respiratory Pattern Tachypnea Blood Pressure 117/63 117/63 Blood Pressure Mean 81 81 Pulse Ox 84 92 Oxygen Delivery Method Room Air Nasal Cannula Room Air Oxygen Flow Rate (L/min) 4 05/12/21 09:42 05/12/21 11:27 Temperature 98.1 F Temperature Source Oral Pulse Rate 84 Respiratory Rate 20 H Respiratory Effort Respiratory Depth Respiratory Pattern Blood Pressure 103/54 L Blood Pressure Mean 70 Pulse Ox 96 Oxygen Delivery Method Nasal Cannula Nasal Cannula Oxygen Flow Rate (L/min) 3 3 Positive well nourished and well developed General Appearance ED: well developed and NAD HEENT Reports dry mucous membranes Negative for trauma or tenderness Mouth ED: Yes dry mucous membranes Mouth: dry mucous membranes Eyes EOMs intact bilaterally Neck no lymphadenopathy, supple and no JVD Chest Wall inspection of chest normal Resp normal respiratory effort and clear to auscultation bilaterally Resp Narrative: Patient coughs frequently with deep inspiration Cardio regular rate, regular rhythm, no murmurs and peripheral pulses 2+ throughout GI normal to inspection, nondistended, normoactive bowel sounds, non-tender and no masses Palpation: soft Back/Spine normal to inspection Extremity normal to inspection General Extremety ED: Negative for tenderness Neuro oriented x3 and no sensory deficits noted Sensorium / Orientation: alert Motor Exam: strength 5/5 throughout Psych mental status grossly normal Skin no rashes or lesions noted MDM MDM MDM Narrative Medical decision making narrative: Patient presented with complications of coronavirus. Patient is requiring supplemental oxygen as her room air pulse oximetry was 84%. IV was established laboratory studies were obtained patient was given IV fluids and I would continued her on her home Decadron. Patient was noted to have a leukocytosis at 17.5 significantly elevated D-dimer at 1.2. Chemistry shows no significant electrolyte derangements. CRP and LDH were also noted to be elevated. CT angiogram of the chest was performed to rule out pulmonary embolism this was noted to be negative, patient requires admission for further treatment of Covid, I discussed this with the hospitalist. Lab Data Labs: Laboratory Results - last 24 hr 05/12/21 05/12/21 05/12/21 09:20 09:20 09:20 WBC 17.5 H RBC 4.66 Hgb 13.7 Hct 40.2 MCV 86.3 MCH 29.4 MCHC 34.1 RDW Std Deviation 37.7 RDW Coeff of Memo 11.9 Plt Count 254 MPV 9.3 Immature Gran % (Auto) 0.700 Neut % (Auto) 91.5 H Lymph % (Auto) 4.7 L [place] % (Auto) 3.0 Eos % (Auto) 0.0 Baso % (Auto) 0.1 Absolute Neuts (auto) 16.0 H Absolute Lymphs (auto) 0.82 L Nucleated RBC % 0 Fibrinogen 642 H D-Dimer Quant (PE/DVT) 1.20 H* Sodium 137 Potassium 3.7 Chloride 103 Carbon Dioxide 27.0 Anion Gap 7 BUN 15 Creatinine 0.73 Estim Creat Clear Calc 71.18 Est GFR (MDRD) Af Amer 106 Est GFR (MDRD) Non-Af 88 BUN/Creatinine Ratio 20.6 H Glucose 107 H Lactic Acid Calcium 8.6 Total Bilirubin 0.40 AST 27 ALT 18 Alkaline Phosphatase 78 Lactate Dehydrogenase 380 H Troponin I High Sens 4 C-React Prot Ext Range 106.00 H B-Natriuretic Peptide Total Protein 7.3 Albumin 2.8 L Globulin 4.5 H Albumin/Globulin Ratio 0.6 L Procalcitonin 05/12/21 05/12/21 05/12/21 09:20 09:20 09:20 WBC RBC Hgb Hct MCV MCH MCHC RDW Std Deviation RDW Coeff of Memo Plt Count MPV Immature Gran % (Auto) Neut % (Auto) Lymph % (Auto) [place] % (Auto) Eos % (Auto) Baso % (Auto) Absolute Neuts (auto) Absolute Lymphs (auto) Nucleated RBC % Fibrinogen D-Dimer Quant (PE/DVT) Sodium Potassium Chloride Carbon Dioxide Anion Gap BUN Creatinine Estim Creat Clear Calc Est GFR (MDRD) Af Amer Est GFR (MDRD) Non-Af BUN/Creatinine Ratio Glucose Lactic Acid 1.2 Calcium Total Bilirubin AST ALT Alkaline Phosphatase Lactate Dehydrogenase Troponin I High Sens C-React Prot Ext Range B-Natriuretic Peptide 34.3 Total Protein Albumin Globulin Albumin/Globulin Ratio Procalcitonin 0.16 H Radiography Chest X-Ray - ED: 1 View, Read by ED Physician, Right Infiltrate and Left Infiltrate Diagnostic Testing: Clinical Impression(s) from Imaging Studies Chest X-Ray 05/12/21 10:00 IMPRESSION: Bilateral airspace opacification demonstrating progression in comparison to the prior study suggestive of progressive Covid 19 disease. Electronically Signed: Wilfredo Medina MD at 10:27 EST Tel , Service support , Chest CTA 05/12/21 10:50 IMPRESSION: No demonstrated PE, a thoracic aortic aneurysm or dissection Stable diffuse interstitial and airspace opacifications in both lung rodriguez without effusions. Stable hepatic cysts, no specific follow-up needed Electronically Signed: Miguelangel Fonseca MD at 11:50 EST , Service support , Discharge Plan Triage Chief Complaint: Shortness of Breath ED Provider: Sanket Silverman Dx/Rx/DC Orders Clinical Impression: Respiratory failure, COVID-19 Prescriptions: No Action dexamethasone 6 MG tablet 6 mg PO DAILY Qty: 7 RF: 0 ibuprofen 600 MG tablet 600 mg PO Q6H PRN PRN (Reason: fever or pain) Qty: 30 RF: 0 albuterol sulfate [Ventolin HFA] 1 INHALER inhaler 2 puff inhalation Q4H PRN PRN (Reason: Wheezing) Qty: 1 RF: 0 Primary Care Provider: Smooth Higgins Referrals: Smooth Higgins MD [Primary Care Provider] - Disposition Disposition: Acute Care [facility]
[2021-05-12 09:59] LABS: Absolute Lymphocyte Count 0.82 X10^3/uL (0.83-4.51); Basophil# 0.02 X10^3/uL; Basophil% 0.1 % (0-1); Hematocrit 40.2 % (37-47); Hemoglobin 13.7 g/dL (12.0-15.0); Lymphocyte # 0.82 X10^3/ul (0.83-4.51); Lymphocyte % 4.7 % (19-41); Mean Corp Hgb Conc 34.1 g/dL (32-36); Mean Corpuscular Hgb 29.4 pg (27.0-32.0); Mean Corpuscular Volume 86.3 fL (81-99); Mean Platelet Vol. 9.3 fl (6.2-12.0); Monocyte# 0.52 X10^3/uL; NRBC Flagged by Analyzer 0 % (0-5); Neutrophil # 15.98 X10^3/uL (2.7-7.7); Neutrophil % 91.5 % (47-70); Platelet Count 254 K/mm3 (150-450); RBC Distribution Width CV 11.9 % (11.6-14.6); RBC Distribution Width SD 37.7 fl (35.1-43.9); Red Blood Count 4.66 M/mm3 (4.2-5.4); White Blood Count 17.5 K/mm3 (4.4-11.0)
[2021-05-12] MEDS: dexAMETHasone 4 MG Tablet 6 MG PO (10:00)
--- NOTE | 2021-05-12 10:00 | RAD_ITS ---
INDICATION: cough EXAMINATION/TECHNIQUE: X-RAY - XR Chest 1 View COMPARISON: 05/10/2021. FINDINGS: LINES/DEVICES: None. LUNGS: No consolidation, edema or effusion. No pneumothorax. Patchy airspace opacification visualized in bilateral lung rodriguez demonstrating slight prominence in comparison to the prior study, no evidence of pleural effusion is seen. No evidence of pneumothorax is visualized. MEDIASTINUM AND CARDIOVASCULAR STRUCTURES: Cardiac silhouette not enlarged. Central airways and mediastinal contour are unremarkable. BONES AND SOFT TISSUES: Unremarkable. RAD/Chest 1 View (Portable) IMPRESSION: Bilateral airspace opacification demonstrating progression in comparison to the prior study suggestive of progressive Covid 19 disease. Electronically Signed: Wilfredo Medina MD at 10:27 EST Tel , Service support ,
[2021-05-12 10:12] LABS: ALB/GLOB Ratio 0.6 RATIO (0.9-2.4); AST(SGOT) 27 U/L (15-37); Alanine Aminotransfer ALT/SGPT 18 U/L (13-56); Albumin, Serum 2.8 g/dL (3.2-5.0); Alkaline Phosphatase 78 U/L (45-117); Anion Gap 7 (5-15); BUN 15 mg/dL (7-18); BUN/Creat Ratio 20.6 RATIO (10-20); Calcium,Total 8.6 mg/dL (8.5-10.1); Chloride 103 mmol/L (98-107); Creatinine, Serum 0.73 mg/dL (0.55-1.02); EST Glomerular Filtration Rate 88 mL/min (>60); Est Glom Filt Rate - Afr Amer 106 mL/min (>60); Estimated Creatinine Clearance 71.18 ml/min; Globulin 4.5 g/dL (2.2-4.2); Glucose 107 mg/dL (74-106); LDH 380 U/L (84-246); Potassium 3.7 mmol/L (3.5-5.1); Protein, Total 7.3 g/dL (6.4-8.2); Sodium Level 137 mmol/L (136-145); Troponin-I HS 4 pg/mL (3.0-54.0)
[2021-05-12 10:13] LABS: Lactic Acid 1.2 mmol/L (0.4-1.9)
[2021-05-12 10:14] LABS: Fibrinogen 642 mg/dl (203-444)
[2021-05-12 10:17] LABS: Procalcitonin 0.16 ng/mL (0.00-0.09)
[2021-05-12 10:24] LABS: BNP,B-Type NATRIURETIC PEPTIDE 34.3 pg/mL (0-100)
--- NOTE | 2021-05-12 10:50 | CT_ITS ---
STUDY: CTA CHEST REASON FOR EXAM: Female, 55 years old. hypoxia, covid RADIATION DOSAGE (If Supplied By Facility): CTDIvol = ( 11.80 ) mGy, DLP = ( 367.96 ) mGycm TECHNIQUE: The examination was performed with the intravenous administration of IV 100mL [id number]-370. Post-processing of the angiographic images was performed, with multiplanar reformation and 3D reconstruction. Individualized dose optimization techniques were used for this CT. COMPARISON: 05/10/2021 FINDINGS: Normal enhancement of the main pulmonary artery and right and left pulmonary arteries. Normal enhancement of the bilateral peripheral pulmonary arteries. There is no demonstrated pulmonary embolism. Normal thoracic aorta and visualized great vessels. There is no demonstrated aortic dissection. Normal heart and pericardium. Normal mediastinum. Normal hilar regions. Normal visualized trachea and bronchi. The lungs are well expanded. Diffuse interstitial and airspace opacifications in both lung rodriguez without effusions. This pattern of opacification is consistent with Covid pneumonia. Normal pleura. Normal chest wall structures. Normal osseous structures. Limited cuts through the upper abdomen show simple cysts in the liver CT/CTA Chest W/WO Contrast IMPRESSION: No demonstrated PE, a thoracic aortic aneurysm or dissection Stable diffuse interstitial and airspace opacifications in both lung rodriguez without effusions. Stable hepatic cysts, no specific follow-up needed Electronically Signed: Miguelangel Fonseca MD at 11:50 EST , Service support ,
[2021-05-12] MEDS: Ibuprofen 200 MG Tablet 400 MG PO (11:27)
[2021-05-12] MEDS: 0.9% Normal Saline 1,000 ML 125 ML IV (11:27)
--- NOTE | 2021-05-12 12:15 | HP.PCM_ITS ---
HPI - General General Date of Admission: 05/12/21 HPI Narrative TEETEE WALKER, is a 55 F who presents with a complaint of worsening shortness of breath. She was diagnosed with covid on 05/04/2021. She had been trying to ride it out at home, but her shortness of breath worsened and s she came in to the ED today. She was placed on decadron on 05/10/2021. She denied any fever or chills, but admitted to cough, shortness of breath, and general malaise. Review of systems was otherwise negative. Vitals were BP of 103/54, ID of 84, RR of 20 and temp of 98.1F. CBC was significant for wbc of 17.5. D dimer was elevated at 1.2. Chemistry was remarkable for elevated LDH and CRP. CXR showed bilateral airspace opacification demonstrating progression. CT of the chest showed no evidence of PE or aneurysm or dissection and showed diffuse interstitial and airspace opacifications in both lung rodriguez without effusion. She is being admitted to be be managed for acute hypoxic respiratory failure due to covid 19 pneumonia FOR[facility]LY [facility], [facility] Medical History History of pneumonia Kidney stones Knee pain Shoulder pain Home Medications albuterol sulfate [Ventolin HFA] 2 puff INHALATION Q4H PRN PRN #1 inhaler 05/10/21 [Rx Last Taken Unknown] dexamethasone 6 mg PO DAILY #7 tab 05/10/21 [Rx Last Taken Unknown] ibuprofen 600 mg PO Q6H PRN PRN #30 tablet 05/10/21 [Rx Last Taken Unknown] Allergy/AdvReac Type Severity Reaction Status Date / Time Penicillins Allergy Mild Hives Verified 05/12/21 09:17 codeine phosphate Allergy Rash Verified 05/12/21 09:17 [From Tylenol-Codeine #3] piperacillin sodium Allergy Hives Verified 05/12/21 09:17 [From Zosyn] tazobactam sodium Allergy Hives Verified 05/12/21 09:17 [From Zosyn] acetaminophen [From Tylenol] AdvReac Hives, Verified 05/12/21 09:17 burning feeling, n/v Family History Mother Cancer Grandmother Heart disease Surgical History Hx of knee surgery Social History Smoking Status: Never smoker alcohol intake: current alcohol intake frequency: a few times a week Alcohol type: wine ROS Constitutional Constitutional: Reports anorexia, chills, fatigue, fever(s), malaise and weakness Eyes Eyes: Reports change in vision ENT HEENT: Denies headache(s) or sore throat Cardiovascular Cardiovascular: Denies chest pain, orthopnea, palpitations or paroxysmal noc turnal dyspnea Respiratory/Chest Respiratory/Chest: Reports cough, shortness of breath at rest, shortness of breath with exertion and wheezing Gastrointestinal Gastrointestinal: Denies abdominal pain, constipation, diarrhea, dyspepsia, nausea or vomiting Genitourinary Genitourinary: Denies dysuria or urinary frequency Musculoskeletal Musculoskeletal: Denies back pain or joint pain Neurologic Neurologic: Reports weakness; Denies confusion, dizziness, focal weakness, headache(s) or seizures Psychiatric Psychiatric: Denies anxiety or depression Vital Signs Vital Signs Vital Signs: 05/12/21 09:11 05/12/21 09:14 05/12/21 09:15 Temperature 99.3 F H 99.3 F H Temperature Source Oral Oral Pulse Rate 90 90 Respiratory Rate 26 H 26 H Respiratory Effort Short of Breath Respiratory Depth Deep Respiratory Pattern Tachypnea Blood Pressure 117/63 117/63 Blood Pressure Mean 81 81 Pulse Ox 84 92 Oxygen Delivery Method Room Air Nasal Cannula Room Air Oxygen Flow Rate (L/min) 4 05/12/21 09:42 05/12/21 11:27 Temperature 98.1 F Temperature Source Oral Pulse Rate 84 Respiratory Rate 20 H Respiratory Effort Respiratory Depth Respiratory Pattern Blood Pressure 103/54 L Blood Pressure Mean 70 Pulse Ox 96 Oxygen Delivery Method Nasal Cannula Nasal Cannula Oxygen Flow Rate (L/min) 3 3 Weight Weight: 169 lb 15.622 oz Body Mass Index (BMI) 30.1 Physical Exam Const alert and oriented x3 General Appearance: cooperative Orientation / Consciousness: lethargic HEENT normocephalic and head/scalp atraumatic Eyes PERRL and EOMs intact bilaterally Neck no lymphadenopathy, supple and no JVD Lymph Lymphatic: no lymphadenopathy noted Resp Resp Narrative: diminished breath sounds bibasally, no wheezes or crackles. on 3L of oxygen by nasal canula Cardio regular rate, regular rhythm, S1 normal heart sound, S2 normal heart sound and no murmurs GI normal to inspection, nondistended, normoactive bowel sounds, soft to palpation, non-tender and non-distended Extremity no clubbing, cyanosis or edema Skin General Skin Exam: turgor normal Neuro CN's II-XII intact bilaterally and no sensory deficits noted Motor Exam: strength 5/5 throughout and general weakness Psych affect normal Results Lab / Micro Data Result Diagrams: 05/12/21 09:20 05/12/21 09:20 Labs: Laboratory Results - last 24 hr 05/12/21 09:20: WBC 17.5 H, RBC 4.66, Hgb 13.7, Hct 40.2, MCV 86.3, MCH 29.4, MCHC 34.1, RDW Std Deviation 37.7, RDW Coeff of Memo 11.9, Plt Count 254, MPV 9.3, Immature Gran % (Auto) 0.700, Neut % (Auto) 91.5 H, Lymph % (Auto) 4.7 L, [place] % (Auto) 3.0, Eos % (Auto) 0.0, Baso % (Auto) 0.1, Absolute Neuts (auto) 16.0 H, Absolute Lymphs (auto) 0.82 L, Nucleated RBC % 0 05/12/21 09:20: Fibrinogen 642 H, D-Dimer Quant (PE/DVT) 1.20 H* 05/12/21 09:20: Sodium 137, Potassium 3.7, Chloride 103, Carbon Dioxide 27.0, Anion Gap 7, BUN 15, Creatinine 0.73, Estim Creat Clear Calc 71.18, Est GFR (MDRD) Af Amer 106, Est GFR (MDRD) Non-Af 88, BUN/Creatinine Ratio 20.6 H, Glucose 107 H, Calcium 8.6, Total Bilirubin 0.40, AST 27, ALT 18, Alkaline Phosphatase 78, Lactate Dehydrogenase 380 H, Troponin I High Sens 4, C-React Prot Ext Range 106.00 H, Total Protein 7.3, Albumin 2.8 L, Globulin 4.5 H, Albumin/Globulin Ratio 0.6 L 05/12/21 09:20: Lactic Acid 1.2 05/12/21 09:20: B-Natriuretic Peptide 34.3 05/12/21 09:20: Procalcitonin 0.16 H Radiology Impression Chest X-Ray 05/12/21 10:00 IMPRESSION: Bilateral airspace opacification demonstrating progression in comparison to the prior study suggestive of progressive Covid 19 disease. Electronically Signed: Wilfredo Medina MD at 10:27 EST Tel , Service support , Chest CTA 05/12/21 10:50 IMPRESSION: No demonstrated PE, a thoracic aortic aneurysm or dissection Stable diffuse interstitial and airspace opacifications in both lung rodriguez without effusions. Stable hepatic cysts, no specific follow-up needed Electronically Signed: Miguelangel Fonseca MD at 11:50 EST , Service support , Assessment & Plan Assessment/Plan (1) COVID-19: (2) Respiratory failure: PLAN: #Acute hypoxic respiratory failure due to covid 19 pneumonia * Patient on 3 L of oxygen. Usually does not wear oxygen at home. * Started on Decadron and remdesivir. * Breathing treatments with bronchodilators. Check urine for strep and Legio mushtaq and sputum cultures. * Titrate oxygen to maintain saturation above 90%. * incentive spirometry * #DVT prophylaxis: lovenox Code status: * Patient counseled extensively about different types of CODE STATUS including full code, DNR CCA and DNR CCA. Patient says she wants to think about CODE STATUS following, make up her mind. She knows that she would want CPR but does not think she would want to be intubated and thus wants to think some more about it. * CODE STATUS will be entered as full code for now. * . Total jnnd-pb-jasc time 17 minutes. Charges/Coding Visit Charges Inpatient E&M: 54710 Init Hosp L3 Procedures Hospitalists Procedures: 36204 Advncd Care Plan 30 Min
--- NOTE | 2021-05-12 17:02 | PCS.PANDOC ---
PANDEMIC DOCUMENTATION INITIATED: Date: 12/27/2020 Time: 190
[2021-05-13] VITALS (15 sets, daily range): BP systolic 104–115; BP diastolic 52–73; PULSE 56–93; RESP 18–20; TEMP 36.3–36.9; O2SAT 88–95
[2021-05-13] MEDS: Ibuprofen 600 MG Tablet PO ×2 (06:15→14:39)
[2021-05-13 07:01] LABS: Absolute Lymphocyte Count 0.68 X10^3/uL (0.83-4.51); Absolute Neutrophil Count 9.9 X10^3/uL (2.0-7.7); Basophil# 0.02 X10^3/uL; Basophil% 0.2 % (0-1); Hematocrit 39.3 % (37-47); Hemoglobin 12.6 g/dL (12.0-15.0); Lymphocyte # 0.68 X10^3/ul (0.83-4.51); Lymphocyte % 5.9 % (19-41); Mean Corp Hgb Conc 32.1 g/dL (32-36); Mean Corpuscular Hgb 28.4 pg (27.0-32.0); Mean Corpuscular Volume 88.7 fL (81-99); Monocyte# 0.76 X10^3/uL; Monocyte% 6.6 % (0-10); NRBC Flagged by Analyzer 0 % (0-5); Neutrophil # 9.89 X10^3/uL (2.7-7.7); Neutrophil % 85.9 % (47-70); Platelet Count 263 K/mm3 (150-450); RBC Distribution Width SD 39.2 fl (35.1-43.9); Red Blood Count 4.43 M/mm3 (4.2-5.4); White Blood Count 11.5 K/mm3 (4.4-11.0)
[2021-05-13 07:39] LABS: ALB/GLOB Ratio 0.6 RATIO (0.9-2.4); AST(SGOT) 28 U/L (15-37); Alanine Aminotransfer ALT/SGPT 19 U/L (13-56); Albumin, Serum 2.4 g/dL (3.2-5.0); Alkaline Phosphatase 69 U/L (45-117); Anion Gap 6 (5-15); BUN 15 mg/dL (7-18); Calcium,Total 8.6 mg/dL (8.5-10.1); Chloride 106 mmol/L (98-107); Creatinine, Serum 0.62 mg/dL (0.55-1.02); EST Glomerular Filtration Rate 105 mL/min (>60); Est Glom Filt Rate - Afr Amer 127 mL/min (>60); Estimated Creatinine Clearance 83.81 ml/min; Globulin 4.3 g/dL (2.2-4.2); Glucose 117 mg/dL (74-106); Potassium 3.7 mmol/L (3.5-5.1); Protein, Total 6.7 g/dL (6.4-8.2); Sodium Level 140 mmol/L (136-145)
[2021-05-13] MEDS: dexAMETHasone 4 MG Tablet 6 MG PO (08:48)
[2021-05-13] MEDS: Enoxaparin 30 MG/0.3 ML Syringe SC ×2 (08:49→20:41)
--- NOTE | 2021-05-13 10:46 | PN.HOSP_ITS ---
Subjective Subjective Patient seen and examined. She had an uneventful night and had no complaints. REview of systems is otherwise negative. She was on 8L of oxygen. She has remained otherwise stable. Objective Data Objective Data Vital Signs: Vital Signs Temp Pulse Resp BP Pulse Ox 97.4 F L 70 18 115/66 95 05/13/21 08:30 05/13/21 08:30 05/13/21 08:30 05/13/21 08:30 05/13/21 08:30 Oxygen Flow Rate (L/min) 7 Oxygen Delivery Method Nasal Cannula Weight: 169 lb 15.622 oz Body Mass Index (BMI) 30.1 Intake & Output: Intake and Output for Last 24 Hours 05/11/21 05/12/21 05/13/21 23:59 23:59 23:59 Intake Total 1681.25 / 1681.25 300 / 300 Balance 1681.25 / 1681.25 300 / 300 Lab / Micro Data Result Diagrams: 05/13/21 06:24 05/13/21 06:34 Labs: Laboratory Results - last 24 hr 05/13/21 06:24: WBC 11.5 H, RBC 4.43, Hgb 12.6, Hct 39.3, MCV 88.7, MCH 28.4, MCHC 32.1 D, RDW Std Deviation 39.2, RDW Coeff of Memo 12.0, Plt Count 263, MPV 9.0, Immature Gran % (Auto) 1.400 H, Neut % (Auto) 85.9 H, Lymph % (Auto) 5.9 L, [place] % (Auto) 6.6, Eos % (Auto) 0.0, Baso % (Auto) 0.2, Absolute Neuts (auto) 9.9 H, Absolute Lymphs (auto) 0.68 L, Nucleated RBC % 0 05/13/21 06:34: Sodium 140, Potassium 3.7, Chloride 106, Carbon Dioxide 28.0, Anion Gap 6, BUN 15, Creatinine 0.62, Estim Creat Clear Calc 83.81, Est GFR (MDRD) Af Amer 127, Est GFR (MDRD) Non-Af 105, BUN/Creatinine Ratio 24.0 H, Glucose 117 H, Calcium 8.6, Total Bilirubin 0.30, AST 28, ALT 19, Alkaline Phosphatase 69, Total Protein 6.7, Albumin 2.4 L, Globulin 4.3 H, Albumin/Glob ulin Ratio 0.6 L Micro: Microbiology 05/12/21 Unknown Urine, Clean Catch Streptococcus pneumoniae Antigen (M - Final 05/12/21 Unknown Urine, Clean Catch Legionella Antigen - Final Radiography Diagnostic Testing: Radiology Impression Chest CTA 05/12/21 10:50 IMPRESSION: No demonstrated PE, a thoracic aortic aneurysm or dissection Stable diffuse interstitial and airspace opacifications in both lung rodriguez without effusions. Stable hepatic cysts, no specific follow-up needed Electronically Signed: Miguelangel Fonseca MD at 11:50 EST , Service support , Physical Exam Const alert, oriented x3 and no apparent distress General Appearance: cooperative Exam Limitations: no limitations HEENT normocephalic, head/scalp atraumatic and moist oral mucous membranes Head and Scalp: normocephalic Eyes PERRL and EOMs intact bilaterally Neck no lymphadenopathy, supple and no JVD Lymph Lymphatic: no lymphadenopathy noted Resp Resp Narrative: diminished breath sounds bibasally, no wheezes or crackles. on 8L of oxygen by nasal canula Cardio regular rate, regular rhythm, S1 normal heart sound, S2 normal heart sound and no murmurs GI normal to inspection, nondistended, normoactive bowel sounds, soft to palpation, non-tender and non-distended Extremity normal to inspection, full ROM and no clubbing, cyanosis or edema Peripheral Pulses: Yes pulses 2+ throughout Skin no rashes or lesions noted General Skin Exam: turgor normal Neuro CN's II-XII intact bilaterally and no sensory deficits noted Motor Exam: strength 5/5 throughout and general weakness Psych affect normal Assessment & Plan Assessment/Plan (1) COVID-19: (2) Respiratory failure: PLAN: #Acute hypoxic respiratory failure due to covid 19 pneumonia * Patient now on 8L of oxygen. * on Decadron and remdesivir. * Breathing treatments with bronchodilators. Check urine for strep and Legionella and sputum cultures. * Titrate oxygen to maintain saturation above 90%. * incentive spirometry * #DVT prophylaxis: lovenox Code status: * patient still doesnt want to decide about intubation if needed, as she is hopeful she wont need it. * will maintain code status as full code for now. Charges/Coding Visit Charges Inpatient E&M: 45438 Subs Hosp L3
--- NOTE | 2021-05-13 12:31 | CASEMGMT ---
Face to Face with patient for initial transition planning/care coordination assessment. SHARON PANCHAL introduced self and role at [facility], voices understanding. Care providers, pharmacy, and demographics verified. PCP: Ronaldo Specialists: None Preferred Pharmacy: [facility] retail Insurance: [employer] Prescription Benefit: yes Living Will/HPOA: yes, HPOA Rodolfo Coughlin (copies at home) LNOK: Rodolfo Coughlin Living Arrangements: w/spouse in a single story home. Pt independent with all ADLS prior to admission. Transportation: Pt drives, spouse able to assist if needed. DME/HHC/SNF: Pt denies any current DME or previous HH or SNF use. Plan: Return home with assistance of spouse as needed and potential home O2. Pt denies any preference in provider. Pt is agreeable to [facility] or any provider available to provide service given current O2 supply shortage. Green sheet placed on chart. Dalton Guillory RN CM
--- NOTE | 2021-05-13 21:05 | NURSING ---
pt walked to bathroom with 10l nc on. When pt returned po 76% with 02 on. Pt encourage to lay on her left side. Po came up to 90%
[2021-05-14] VITALS (12 sets, daily range): BP systolic 110–114; BP diastolic 64–73; PULSE 55–74; RESP 18–21; TEMP 36.6–36.9; O2SAT 89–98
--- NOTE | 2021-05-14 04:23 | NURSING ---
pt gets very sob walking to bathroom. increased 02 to 10l. It takes 15-20 mins for her to recover
--- NOTE | 2021-05-14 05:25 | NURSING ---
pt proning po 97% on 02 at 7lnc
[2021-05-14 08:05] LABS: Absolute Lymphocyte Count 1.26 X10^3/uL (0.83-4.51); Absolute Neutrophil Count 12.3 X10^3/uL (2.0-7.7); Basophil# 0.02 X10^3/uL; Basophil% 0.1 % (0-1); Hemoglobin 13.1 g/dL (12.0-15.0); Lymphocyte # 1.26 X10^3/ul (0.83-4.51); Lymphocyte % 8.6 % (19-41); Mean Corp Hgb Conc 33.6 g/dL (32-36); Mean Corpuscular Hgb 29.2 pg (27.0-32.0); Mean Corpuscular Volume 86.9 fL (81-99); Mean Platelet Vol. 8.9 fl (6.2-12.0); Monocyte# 0.87 X10^3/uL; NRBC Flagged by Analyzer 0 % (0-5); Neutrophil # 12.32 X10^3/uL (2.7-7.7); Neutrophil % 84.5 % (47-70); Platelet Count 330 K/mm3 (150-450); RBC Distribution Width CV 11.9 % (11.6-14.6); RBC Distribution Width SD 38.3 fl (35.1-43.9); Red Blood Count 4.49 M/mm3 (4.2-5.4); White Blood Count 14.6 K/mm3 (4.4-11.0)
[2021-05-14 09:07] LABS: ALB/GLOB Ratio 0.7 RATIO (0.9-2.4); AST(SGOT) 28 U/L (15-37); Alanine Aminotransfer ALT/SGPT 22 U/L (13-56); Albumin, Serum 2.4 g/dL (3.2-5.0); Alkaline Phosphatase 74 U/L (45-117); Anion Gap 7 (5-15); BUN 18 mg/dL (7-18); BUN/Creat Ratio 33.5 RATIO (10-20); Calcium,Total 8.5 mg/dL (8.5-10.1); Chloride 108 mmol/L (98-107); Creatinine, Serum 0.54 mg/dL (0.55-1.02); EST Glomerular Filtration Rate 125 mL/min (>60); Est Glom Filt Rate - Afr Amer 151 mL/min (>60); Estimated Creatinine Clearance 96.23 ml/min; Globulin 3.6 g/dL (2.2-4.2); Glucose 97 mg/dL (74-106); Potassium 4.2 mmol/L (3.5-5.1); Sodium Level 142 mmol/L (136-145)
--- NOTE | 2021-05-14 09:51 | PN.HOSP_ITS ---
Subjective Subjective Patient seen and examined. She says she had a bad night as she feels her breathing got worse at night. She is still coughing. Review of systems is otherwise negative. She is on 7L of oxygen. She wants to get up and ambulate with physical therapy. Objective Data Objective Data Vital Signs: Vital Signs Temp Pulse Resp BP Pulse Ox 98 F 60 20 H 110/65 94 05/14/21 04:20 05/14/21 07:00 05/14/21 04:20 05/14/21 04:20 05/14/21 04:20 Oxygen Flow Rate (L/min) 7 Oxygen Delivery Method Nasal Cannula Weight: 169 lb 15.622 oz Body Mass Index (BMI) 30.1 Intake & Output: Intake and Output for Last 24 Hours 05/12/21 05/13/21 05/14/21 23:59 23:59 23:59 Intake Total 1681.25 / 1681.25 1030 / 1470 560 / 560 Balance 1681.25 / 1681.25 1030 / 1470 560 / 560 Lab / Micro Data Result Diagrams: 05/14/21 07:30 05/14/21 07:30 Labs: Laboratory Results - last 24 hr 05/14/21 07:30: WBC 14.6 H, RBC 4.49, Hgb 13.1, Hct 39.0, MCV 86.9, MCH 29.2, MCHC 33.6, RDW Std Deviation 38.3, RDW Coeff of Memo 11.9, Plt Count 330, MPV 8.9, Immature Gran % (Auto) 0.800, Neut % (Auto) 84.5 H, Lymph % (Auto) 8.6 L, [place] % (Auto) 6.0, Eos % (Auto) 0.0, Baso % (Auto) 0.1, Absolute Neuts (auto) 12.3 H, Absolute Lymphs (auto) 1.26, Nucleated RBC % 0 05/14/21 07:30: Sodium 142, Potassium 4.2, Chloride 108 H, Carbon Dioxide 27.0, Anion Gap 7, BUN 18, Creatinine 0.54 L, Estim Creat Clear Calc 96.23, Est GFR (MDRD) Af Amer 151, Est GFR (MDRD) Non-Af 125, BUN/Creatinine Ratio 33.5 H, Glucose 97, Calcium 8.5, Total Bilirubin 0.40, AST 28, ALT 22, Alkaline Phosphatase 74, Total Protein 6.0 L, Albumin 2.4 L, Globulin 3.6, Albumin/Globulin Ratio 0.7 L Micro: Microbiology 05/12/21 09:53 Blood Culture (Wb) - Left Wrist Blood Culture - Preliminary No growth in 48 hours. 05/12/21 09:20 Blood Culture (Wb) - Anticubital Right Blood Culture - Preliminary No growth in 48 hours. 05/12/21 Unknown Urine, Clean Catch Streptococcus pneumoniae Antigen (M - Final 05/12/21 Unknown Urine, Clean Catch Legionella Antigen - Final Physical Exam Const alert, oriented x3 and no apparent distress General Appearance: cooperative Exam Limitations: no limitations HEENT normocephalic, head/scalp atraumatic and moist oral mucous membranes Head and Scalp: normocephalic Eyes PERRL and EOMs intact bilaterally Neck no lymphadenopathy, supple and no JVD Lymph Lymphatic: no lymphadenopathy noted Resp Resp Narrative: diminished breath sounds bibasally, no wheezes or crackles. on 7L of oxygen by nasal canula Cardio regular rate, regular rhythm, S1 normal heart sound, S2 normal heart sound and no murmurs GI normal to inspection, nondistended, normoactive bowel sounds, soft to palpation, non-tender and non-distended Extremity normal to inspection, full ROM and no clubbing, cyanosis or edema Peripheral Pulses: Yes pulses 2+ throughout Skin no rashes or lesions noted General Skin Exam: turgor normal Neuro CN's II-XII intact bilaterally and no sensory deficits noted Motor Exam: strength 5/5 throughout and general weakness Psych affect normal Assessment & Plan Assessment/Plan (1) COVID-19: (2) Respiratory failure: PLAN: #Acute hypoxic respiratory failure due to covid 19 pneumonia * Patient now on 7L of oxygen. * on Decadron and remdesivir. * Breathing treatments with bronchodilators. urien for strep and legionella are negative. Blood cultures are also negative. * Titrate oxygen to maintain saturation above 90%. * incentive spirometry * consult PT/OT. Fall precautions. #DVT prophylaxis: lovenox Charges/Coding Visit Charges Inpatient E&M: 54496 Subs Hosp L2
[2021-05-14] MEDS: Ibuprofen 600 MG Tablet PO ×2 (10:28→20:54)
[2021-05-14] MEDS: dexAMETHasone 4 MG Tablet 6 MG PO (10:28)
[2021-05-14] MEDS: Enoxaparin 30 MG/0.3 ML Syringe SC ×2 (10:30→20:54)
--- NOTE | 2021-05-14 22:11 | NURSING ---
po 98% on 7lnc. decreased to 6lnc. will monitor
[2021-05-15] VITALS (8 sets, daily range): BP systolic 98–113; BP diastolic 52–63; PULSE 47–76; RESP 18–20; TEMP 36.6–37.1; O2SAT 93–99
--- NOTE | 2021-05-15 02:37 | NURSING ---
02 DECREASED TO 5LNC
[2021-05-15] MEDS: Ibuprofen 600 MG Tablet PO ×2 (04:16→20:45)
--- NOTE | 2021-05-15 05:44 | NURSING ---
02 decreased to 4lnc
[2021-05-15 07:15] LABS: Absolute Lymphocyte Count 1.35 X10^3/uL (0.83-4.51); Absolute Neutrophil Count 10.4 X10^3/uL (2.0-7.7); Basophil# 0.02 X10^3/uL; Basophil% 0.2 % (0-1); Eosinophil# 0.01 X10^3/uL; Eosinophils% 0.1 % (0-5); Hematocrit 39.6 % (37-47); Hemoglobin 13.1 g/dL (12.0-15.0); Lymphocyte # 1.35 X10^3/ul (0.83-4.51); Lymphocyte % 10.5 % (19-41); Mean Corp Hgb Conc 33.1 g/dL (32-36); Mean Corpuscular Hgb 28.8 pg (27.0-32.0); Mean Platelet Vol. 8.9 fl (6.2-12.0); Monocyte# 0.93 X10^3/uL; Monocyte% 7.2 % (0-10); NRBC Flagged by Analyzer 0 % (0-5); Neutrophil # 10.39 X10^3/uL (2.7-7.7); Neutrophil % 80.5 % (47-70); Platelet Count 349 K/mm3 (150-450); RBC Distribution Width CV 11.8 % (11.6-14.6); RBC Distribution Width SD 37.8 fl (35.1-43.9); Red Blood Count 4.55 M/mm3 (4.2-5.4); White Blood Count 12.9 K/mm3 (4.4-11.0)
[2021-05-15 07:30] LABS: ALB/GLOB Ratio 0.6 RATIO (0.9-2.4); AST(SGOT) 19 U/L (15-37); Alanine Aminotransfer ALT/SGPT 22 U/L (13-56); Albumin, Serum 2.2 g/dL (3.2-5.0); Alkaline Phosphatase 67 U/L (45-117); Anion Gap 6 (5-15); BUN 23 mg/dL (7-18); BUN/Creat Ratio 38.1 RATIO (10-20); Calcium,Total 8.4 mg/dL (8.5-10.1); Chloride 106 mmol/L (98-107); EST Glomerular Filtration Rate 109 mL/min (>60); Est Glom Filt Rate - Afr Amer 132 mL/min (>60); Estimated Creatinine Clearance 86.61 ml/min; Globulin 3.9 g/dL (2.2-4.2); Glucose 92 mg/dL (74-106); Protein, Total 6.1 g/dL (6.4-8.2); Sodium Level 139 mmol/L (136-145)
[2021-05-15] MEDS: dexAMETHasone 4 MG Tablet 6 MG PO (11:29)
--- NOTE | 2021-05-15 11:29 | PN.HOSP_ITS ---
Subjective Subjective Patient seen and examined. She feels much better today and is now on 5L of oxygen. Review of systems is otherwise negative. Objective Data Objective Data Vital Signs: Vital Signs Temp Pulse Resp BP Pulse Ox 98.1 F 75 18 101/59 L 94 05/15/21 10:20 05/15/21 10:20 05/15/21 10:20 05/15/21 10:20 05/15/21 10:20 Oxygen Flow Rate (L/min) 5 Oxygen Delivery Method Nasal Cannula Weight: 169 lb 15.622 oz Body Mass Index (BMI) 30.1 Intake & Output: Intake and Output for Last 24 Hours 05/13/21 05/14/21 05/15/21 23:59 23:59 23:59 Intake Total 1030 / 1470 1610 / 1610 240 / 240 Balance 1030 / 1470 1610 / 1610 240 / 240 Lab / Micro Data Result Diagrams: 05/15/21 06:34 05/15/21 06:34 Labs: Laboratory Results - last 24 hr 05/15/21 06:34: WBC 12.9 H, RBC 4.55, Hgb 13.1, Hct 39.6, MCV 87.0, MCH 28.8, MCHC 33.1, RDW Std Deviation 37.8, RDW Coeff of [place]om 11.8, Plt Count 349, MPV 8.9, Immature Gran % (Auto) 1.500 H, Neut % (Auto) 80.5 H, Lymph % (Auto) 10.5 L , [place] % (Auto) 7.2, Eos % (Auto) 0.1, Baso % (Auto) 0.2, Absolute Neuts (auto) 10.4 H, Absolute Lymphs (auto) 1.35, Nucleated RBC % 0 05/15/21 06:34: Sodium 139, Potassium 4.0, Chloride 106, Carbon Dioxide 27.0, Anion Gap 6, BUN 23 H, Creatinine 0.60, Estim Creat Clear Calc 86.61, Est GFR (M DRD) Af Amer 132, Est GFR (MDRD) Non-Af 109, BUN/Creatinine Ratio 38.1 H, Glu cose 92, Calcium 8.4 L, Total Bilirubin 0.40, AST 19, ALT 22, Alkaline Phosph atase 67, Total Protein 6.1 L, Albumin 2.2 L, Globulin 3.9, Albumin/Globulin Ratio 0.6 L Micro: Microbiology 05/12/21 09:53 Blood Culture (Wb) - Left Wrist Blood Culture - Preliminary No growth in 48 hours. 05/12/21 09:20 Blood Culture (Wb) - Anticubital Right Blood Culture - Preliminary No growth in 48 hours. 05/12/21 Unknown Urine, Clean Catch Streptococcus pneumoniae Antigen (M - Final 05/12/21 Unknown Urine, Clean Catch Legionella Antigen - Final Physical Exam Const alert, oriented x3 and no apparent distress General Appearance: cooperative Exam Limitations: no limitations HEENT normocephalic, head/scalp atraumatic and moist oral mucous membranes Head and Scalp: normocephalic Eyes PERRL and EOMs intact bilaterally Neck no lymphadenopathy, supple and no JVD Lymph Lymphatic: no lymphadenopathy noted Resp Resp Narrative: diminished breath sounds bibasally, no wheezes or crackles. on 5L of oxygen by nasal canula Cardio regular rate, regular rhythm, S1 normal heart sound, S2 normal heart sound and no murmurs GI normal to inspection, nondistended, normoactive bowel sounds, soft to palpation, non-tender and non-distended Extremity normal to inspection, full ROM and no clubbing, cyanosis or edema Skin no rashes or lesions noted General Skin Exam: turgor normal Neuro oriented x3, CN's II-XII intact bilaterally, moves all extremities and no sensory deficits noted Sensorium / Orientation: awake and alert Motor Exam: strength 5/5 throughout and general weakness Psych affect normal Assessment & Plan Assessment/Plan (1) COVID-19: (2) Respiratory failure: PLAN: #Acute hypoxic respiratory failure due to covid 19 pneumonia * Patient now down to 5L of oxygen. * on Decadron and remdesivir. * Breathing treatments with bronchodilators. urine for strep and legionella are negative. Blood cultures are also negative. * Titrate oxygen to maintain saturation above 90%. * incentive spirometry * consult PT/OT. Fall precautions. * #DVT prophylaxis: lovenox Charges/Coding Visit Charges Inpatient E&M: 14914 Subs Hosp L2
[2021-05-15] MEDS: Enoxaparin 30 MG/0.3 ML Syringe SC ×2 (11:30→20:45)
[2021-05-16] VITALS (7 sets, daily range): BP systolic 88–127; BP diastolic 59–74; PULSE 59–79; RESP 18; TEMP 36.7–36.9; O2SAT 85–97
[2021-05-16 06:59] LABS: Absolute Lymphocyte Count 1.34 X10^3/uL (0.83-4.51); Absolute Neutrophil Count 6.9 X10^3/uL (2.0-7.7); Basophil# 0.04 X10^3/uL; Basophil% 0.4 % (0-1); Eosinophil# 0.04 X10^3/uL; Eosinophils% 0.4 % (0-5); Hematocrit 42.8 % (37-47); Hemoglobin 14.2 g/dL (12.0-15.0); Lymphocyte # 1.34 X10^3/ul (0.83-4.51); Lymphocyte % 14.1 % (19-41); Mean Corp Hgb Conc 33.2 g/dL (32-36); Mean Corpuscular Hgb 28.9 pg (27.0-32.0); Mean Platelet Vol. 8.4 fl (6.2-12.0); Monocyte# 0.93 X10^3/uL; Monocyte% 9.8 % (0-10); NRBC Flagged by Analyzer 0 % (0-5); Neutrophil # 6.93 X10^3/uL (2.7-7.7); Platelet Count 364 K/mm3 (150-450); RBC Distribution Width CV 11.7 % (11.6-14.6); RBC Distribution Width SD 37.7 fl (35.1-43.9); Red Blood Count 4.92 M/mm3 (4.2-5.4); White Blood Count 9.5 K/mm3 (4.4-11.0)
[2021-05-16 07:26] LABS: ALB/GLOB Ratio 0.6 RATIO (0.9-2.4); AST(SGOT) 23 U/L (15-37); Alanine Aminotransfer ALT/SGPT 24 U/L (13-56); Albumin, Serum 2.3 g/dL (3.2-5.0); Alkaline Phosphatase 67 U/L (45-117); Anion Gap 4 (5-15); BUN 17 mg/dL (7-18); BUN/Creat Ratio 31.2 RATIO (10-20); Calcium,Total 8.7 mg/dL (8.5-10.1); Chloride 109 mmol/L (98-107); Creatinine, Serum 0.54 mg/dL (0.55-1.02); EST Glomerular Filtration Rate 123 mL/min (>60); Est Glom Filt Rate - Afr Amer 149 mL/min (>60); Estimated Creatinine Clearance 96.23 ml/min; Glucose 91 mg/dL (74-106); Potassium 4.1 mmol/L (3.5-5.1); Protein, Total 6.3 g/dL (6.4-8.2); Sodium Level 141 mmol/L (136-145)
[2021-05-16] MEDS: Enoxaparin 30 MG/0.3 ML Syringe SC (10:22)
[2021-05-16] MEDS: dexAMETHasone 4 MG Tablet 6 MG PO (10:22)
--- NOTE | 2021-05-16 13:53 | CASEMGMT ---
Pt qualifies for 3L at rest and 5L w/ exertion and stated preference for [facility]. Order faxed to [facility] and Kristen aware. Pt updated on all, voices understanding. Pt voices no further questions/concerns/needs with going home. Kina HERRERA CM
--- NOTE | 2021-05-16 15:22 | PCM.DC ---
Discharge Instructions Diet Discharge Diet: No restrictions Activity Discharge Activity: Return to Normal Activity Dressing / Incision Call your doctor if you observe: Fever of 101 or Higher, Shortness of breath, Dizziness, Fainting spells, Swelling in the ankles, Chest pain and Increased palpitations (irregular heartbeat) Follow Up Care Test Results: Test results from this visit will be discussed in further detail at your follow-up appointment, if applicable. Discharge Plan Admission Admit Date/Time: 05/12/21 12:34 Attending Provider: Moreno Munoz Primary Care Provider: Smooth Higgins Discharge Orders/Prescriptions Prescriptions: Continued dexamethasone 6 MG tablet 6 mg PO DAILY Qty: 7 RF: 0 ibuprofen 600 MG tablet 600 mg PO Q6H PRN PRN (Reason: fever or pain) Qty: 30 RF: 0 albuterol sulfate [Ventolin HFA] 1 INHALER inhaler 2 puff inhalation Q4H PRN PRN (Reason: Wheezing) Qty: 1 RF: 0 Referrals / Follow Up: Smooth Higgins MD [Primary Care Provider] - Within 1 Week Disposition Disposition (needs filled in before D/C Order can be placed): Home, Self Care
--- NOTE | 2021-05-16 15:33 | PHA.DC.MR ---
Pharmacy Service has performed discharge medication reconciliation for this patient. The patient's discharge medication list was reviewed for discrepancies and discrepancies were resolved. Home Medications albuterol sulfate [Ventolin HFA] 2 puff INHALATION Q4H PRN PRN #1 inhaler 05/10/21 dexamethasone 6 mg PO DAILY #7 tab 05/10/21 ibuprofen 600 mg PO Q6H PRN PRN #30 tablet 05/10/21
--- NOTE | 2021-05-16 15:46 | PCM.DC.SUM ---
Providers Date of Admission: 05/12/21 Primary Care Physician: Dr. Smooth Higgins MD Reason For Visit: ACUTE HYPOXIC RESPIRATIRY FAILURE DUE TO COVID Diagnosis Discharge Diagnosis (1) COVID-19: Status: Acute Code(s): U07.1 - COVID-19 (2) Respiratory failure: Status: Acute Code(s): J96.90 - Respiratory failure, unspecified, unspecified whether with hypoxia or hypercapnia Medications at Discharge Home Medications albuterol sulfate [Ventolin HFA] 2 puff INHALATION Q4H PRN PRN #1 inhaler 05/10/21 dexamethasone 6 mg PO DAILY #7 tab 05/10/21 ibuprofen 600 mg PO Q6H PRN PRN #30 tablet 05/10/21 Hospital Course Operations None Procedures None Summary of Care Provided Minutes Spent on Discharge: 35 Hospital Course: Per HPI: TEETEE WALKER, is a 55 F who presents with a complaint of worsening shortness of breath. She was diagnosed with covid on 05/04/2021. She had been trying to ride it out at home, but her shortness of breath worsened and s she came in to the ED today. She was placed on decadron on 05/10/2021. She denied any fever or chills, but admitted to cough, shortness of breath, and general malaise. Review of systems was otherwise negative. Vitals were BP of 103/54, ME of 84, RR of 20 and temp of 98.1F. CBC was significant for wbc of 17.5. D dimer was elevated at 1.2. Chemistry was remarkable for elevated LDH and CRP. CXR showed bilateral airspace opacification demonstrating progression. CT of the chest showed no evidence of PE or aneurysm or dissection and showed diffuse interstitial and airspace opacifications in both lung rodriguez without effusion. She is being admitted to be be managed for acute hypoxic respiratory failure due to covid 19 pneumonia Hospital Course: 1. 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 She was diagnosed with Covid on 05/04/2021 which is when symptoms started. She was started on Decadron on 05/10/2021 and presented to the hospital on 05/12/2021. She has significantly improved on oxygen as well as interventions with remdesivir and Decadron. CTA of the chest was negative for PE and has had an improvement in her oxygen requirements. She will still require oxygen for ambulation on discharge however she would like to go home today. I did discuss with both her and her the risks and benefits of discharge and expressed understanding. Will plan to discharge and she will need to continue her Decadron medication which she received as an outpatient. I do recommend that she stay quarantined for 20 days from symptom onset and she is to follow-up with her PCP as an outpatient. I also encourage vaccination against Covid when able. Physical Exam Const alert, oriented x3 and no apparent distress General Appearance: cooperative HEENT normocephalic and moist oral mucous membranes Eyes PERRL, EOMs intact bilaterally and conjunctivae normal Neck supple and no JVD Resp normal respiratory effort, no retractions and no use of accessory muscles Auscultation: crackles and diminished lung sounds; Negative for rales, rhonchi or wheezes Cardio regular rate, regular rhythm, S1 normal heart sound, S2 normal heart sound and no murmurs GI soft to palpation, non-tender and non-distended; Negative for hepatosplenomegaly Extremity no clubbing, cyanosis or edema Skin no rashes or lesions noted Neuro no focal motor deficits and no sensory deficits noted Psych affect normal Appearance: appropriate Weight / BMI Weight Weight: 169 lb 15.622 oz Body Mass Index (BMI) 30.1 ABG / Lab / Microbiology Data Result Diagrams: 05/16/21 06:50 05/16/21 06:50 Laboratory: Laboratory Results - last 24 hr 05/16/21 06:50: WBC 9.5, RBC 4.92, Hgb 14.2, Hct 42.8, MCV 87.0, MCH 28.9, MCHC 33.2, RDW Std Deviation 37.7, RDW Coeff of Memo 11.7, Plt Count 364, MPV 8.4, Immature Gran % (Auto) 2.300 H, Neut % (Auto) 73.0 H, Lymph % (Auto) 14.1 L, [place] % (Auto) 9.8, Eos % (Auto) 0.4, Baso % (Auto) 0.4, Absolute Neuts (auto) 6.9, Absolute Lymphs (auto) 1.34, Nucleated RBC % 0 05/16/21 06:50: Sodium 141, Potassium 4.1, Chloride 109 H, Carbon Dioxide 28.0, Anion Gap 4 L, BUN 17, Creatinine 0.54 L, Estim Creat Clear Calc 96.23, Est GFR (MDRD) Af Amer 149, Est GFR (MDRD) Non-Af 123, BUN/Creatinine Ratio 31.2 H, Glucose 91, Calcium 8.7, Total Bilirubin 0.40, AST 23, ALT 24, Alkaline Phosphatase 67, Total Protein 6.3 L, Albumin 2.3 L, Globulin 4.0, Albumin/Globulin Ratio 0.6 L Microbiology: Microbiology 05/12/21 09:53 Blood Culture (Wb) - Left Wrist Blood Culture - Preliminary No growth in 48 hours. 05/12/21 09:20 Blood Culture (Wb) - Anticubital Right Blood Culture - Preliminary No growth in 48 hours. 05/12/21 Unknown Urine, Clean Catch Streptococcus pneumoniae Antigen (M - Final 05/12/21 Unknown Urine, Clean Catch Legionella Antigen - Final D/C Instructions Discharge Diet: No restrictions Call your doctor if you observe: Fever of 101 or Higher, Shortness of breath, Dizziness, Fainting spells, Swelling in the ankles, Chest pain and Increased palpitations (irregular heartbeat) Meaningful Use Info Meaningful Use Diagnoses (Choose all that apply): None applicable Discharge Plan Admission Admit Date/Time: 05/12/21 12:34 Attending Provider: Moreno Munoz Primary Care Provider: Smooth Higgins Discharge Orders/Prescriptions Prescriptions: Continued dexamethasone 6 MG tablet 6 mg PO DAILY Qty: 7 RF: 0 ibuprofen 600 MG tablet 600 mg PO Q6H PRN PRN (Reason: fever or pain) Qty: 30 RF: 0 albuterol sulfate [Ventolin HFA] 1 INHALER inhaler 2 puff inhalation Q4H PRN PRN (Reason: Wheezing) Qty: 1 RF: 0 Referrals / Follow Up: Smooth Higgins MD [Primary Care Provider] - Within 1 Week Disposition Disposition (needs filled in before D/C Order can be placed): Home, Self Care Charges/Coding Visit Charges Inpatient E&M: [id number] Disch Hosp
== END 2021-05-16 16:37 | disposition home or self-care (01) | DRG 177 ==
LOC: ED 12:24 → PCU 15:00
PROVIDERS: Admitting Provider Student in an Organized Health Care Education/Training Program; Emergency Provider Emergency Medicine; PCP Family Medicine; Visit Provider Family Medicine
DX: U07.1 COVID-19 (principal); J12.82 Pneumonia due to coronavirus disease 2019; J96.01 Acute respiratory failure with hypoxia; Z66 Do not resuscitate; K76.89 Other specified diseases of liver; Z82.49 Family history of ischemic heart disease and other diseases of the circulatory system; Z88.0 Allergy status to penicillin
CPT/HCPCS: 36415; 71045; 71275; 80053; 83605; 83615; 83880; 84145; 84484; 85025; 85379; 85384; 86140; 87040; 87449; 97163; 97165; 97530; 97535; 99251; 99285; J7030; J7040; J7050; Q9967; A4216; G0463; J0248

== ENCOUNTER 2021-09-10 07:08 | Outpatient (RCR) | payer OTHER, SELFPAY | END 2021-09-10 23:59 | LOC: EMPH 07:08 | PROVIDERS: PCP Family Medicine; Referring Provider Family Medicine Geriatric Medicine; Visit Provider Family Medicine Geriatric Medicine | DX: Z01.84 Encounter for antibody response examination (principal) | CPT/HCPCS: 87426; 87811 ==

== ENCOUNTER → 2021-11-16 | Outpatient (CLI) | payer OTHER, SELFPAY ==
--- NOTE | 2021-11-16 13:23 | BI_ITS ---
MAMMOGRAPHY - BILATERAL SCREENING REASON FOR EXAM: Female, 55 years old. Routine annual screening examination. PERTINENT HISTORY: Non-contributory. TECHNIQUE: Digital bilateral breast azeb (3D mammographic acquisition) in the CC and MLO projections. 2-D mediolateral oblique (MLO) and craniocaudad (CC) views of both breasts were obtained. CAD: Full Field Digital Mammography with Computer Added Detection was performed. COMPARISON: Comparison is made with prior study dated 10/29/2020 and 10/30/2019. FINDINGS: Breast Composition: The breasts are heterogeneously dense, which may obscure small masses. There are no dominant masses or suspicious calcifications. Stable small benign-appearing bilateral axillary lymph nodes. No other significant abnormalities are identified. There has been no significant change since the prior study. BI/SCRN MAMM (CAD)W/AZEB BILAT IMPRESSION: Stable bilateral screening mammogram. Yearly follow-up mammogram recommended. (A) ASSESSMENT CATEGORY: BIRADS Category 2: Benign. A letter regarding these results will be sent to the patient by the facility within 30 days. Approximately 10% of breast cancers are not detected by mammography. A normal mammogram should not delay biopsy of a clinically suspicious abnormality. [id number] Electronically Signed: Guido Lagos MD at 14:30 EDT ,
== END | disposition home or self-care (01) ==
LOC: OPBI 13:20
PROVIDERS: Visit Provider Family Medicine
DX: Z12.31 Encounter for screening mammogram for malignant neoplasm of breast (principal)
CPT/HCPCS: 77063; 77067

== ENCOUNTER → 2022-01-23 | Outpatient (CLI) | payer OTHER, SELFPAY ==
[2022-01-23 07:07] LABS: Hematocrit 40.8 % (37-47); Hemoglobin 13.4 g/dL (12.0-15.0); Mean Corp Hgb Conc 32.8 g/dL (32-36); Mean Corpuscular Volume 91.3 fL (81-99); Mean Platelet Vol. 9.1 fl (6.2-12.0); Platelet Count 330 K/mm3 (150-450); RBC Distribution Width CV 12.1 % (11.6-14.6); RBC Distribution Width SD 40.4 fl (35.1-43.9); Red Blood Count 4.47 M/mm3 (4.2-5.4); White Blood Count 7.4 K/mm3 (4.4-11.0)
[2022-01-23 08:13] LABS: AST(SGOT) 17 U/L (15-37); Alanine Aminotransfer ALT/SGPT 23 U/L (13-56); Albumin, Serum 3.6 g/dL (3.2-5.0); Alkaline Phosphatase 109 U/L (45-117); Anion Gap 4 (5-15); BUN 19 mg/dL (7-18); BUN/Creat Ratio 26.2 RATIO (10-20); Calcium,Total 9.2 mg/dL (8.5-10.1); Chloride 110 mmol/L (98-107); Creatinine, Serum 0.72 mg/dL (0.55-1.02); EST Glomerular Filtration Rate 88 mL/min (>60); Est Glom Filt Rate - Afr Amer 107 mL/min (>60); Globulin 3.5 g/dL (2.2-4.2); Glucose 100 mg/dL (74-106); Potassium 3.7 mmol/L (3.5-5.1); Protein, Total 7.1 g/dL (6.4-8.2); Sodium Level 142 mmol/L (136-145)
== END | disposition home or self-care (01) ==
LOC: LAB 06:23
PROVIDERS: Referring Provider Nurse Practitioner Primary Care; Visit Provider Nurse Practitioner Primary Care
DX: U07.1 COVID-19 (principal)
CPT/HCPCS: 36415; 80053; 85027

== ENCOUNTER → 2022-02-01 | Outpatient (CLI) | payer OTHER, SELFPAY ==
--- NOTE | 2022-02-01 14:08 | RAD_ITS ---
STUDY: CHEST SERIES--PA AND LATERAL VIEWS OF 1414 HOURS ON 02/01/2022 REASON FOR EXAM: 56-year-old female with Covid. TECHNIQUE: A standard 2 view chest x-ray series was performed per protocol. COMPARISON: 05/12/2021, which demonstrated multifocal alveolar infiltrates in this patient''s lungs.. FINDINGS: Normal osseous structures. No cardiomegaly. No pulmonary infiltrates, atelectasis, effusion, pulmonary mass lesions. No current evidence of Covid pneumonias. No pneumonia, pneumonitis, or bronchitis. No subdiaphragmatic abnormalities. RAD/Chest PA and Lateral IMPRESSION: 1. No current evidence of Covid pneumonias. 2. No other infiltrates, atelectasis, effusion, or mass lesions. 3. No cardiomegaly. 4. Normal osseous structures. Electronically Signed: Noah Fortune MD at 1:38 EDT ,
== END | disposition home or self-care (01) ==
PROVIDERS: PCP Nurse Practitioner Primary Care; Referring Provider Nurse Practitioner Primary Care; Visit Provider Nurse Practitioner Primary Care
DX: U07.1 COVID-19 (principal)
CPT/HCPCS: 71046

== ENCOUNTER → 2022-11-17 | Outpatient (CLI) | payer OTHER, SELFPAY ==
--- NOTE | 2022-11-17 08:30 | BI_ITS ---
MAMMOGRAPHY - BILATERAL SCREENING REASON FOR EXAM: Female, 56 years old. Routine annual screening examination. PERTINENT HISTORY: Non-contributory. TECHNIQUE: Digital bilateral breast azeb (3D mammographic acquisition) in the CC and MLO projections. 2-D mediolateral oblique (MLO) and craniocaudad (CC) views of both breasts were obtained. CAD: Full Field Digital Mammography with Computer Added Detection was performed. COMPARISON: Comparison is made with prior study dated November 16, 2021 and October 29, 2020. FINDINGS: Breast Composition: The breasts are heterogeneously dense, which may obscure small masses. There are no dominant masses or suspicious calcifications. Stable small benign-appearing bilateral axillary lymph nodes. No other significant abnormalities are identified. There has been no significant change since the prior study. BI/SCRN MAMM (CAD)W/AZEB BILAT IMPRESSION: Stable bilateral screening mammogram. Yearly follow-up mammogram recommended. (A) ASSESSMENT CATEGORY: BIRADS Category 2: Benign. A letter regarding these results will be sent to the patient by the facility within 30 days. Approximately 10% of breast cancers are not detected by mammography. A normal mammogram should not delay biopsy of a clinically suspicious abnormality. [id number] Electronically Signed: Guido Lagos MD at 10:09 EDT ,
== END | disposition home or self-care (01) ==
LOC: OPBI 08:28
PROVIDERS: PCP Student in an Organized Health Care Education/Training Program; Referring Provider Student in an Organized Health Care Education/Training Program; Visit Provider Student in an Organized Health Care Education/Training Program
DX: Z12.31 Encounter for screening mammogram for malignant neoplasm of breast (principal)
CPT/HCPCS: 77063; 77067

== ENCOUNTER → 2023-11-16 | Outpatient (CLI) | payer OTHER, SELFPAY ==
--- NOTE | 2023-11-16 12:25 | RAD_ITS ---
STUDY: X-RAY - LEFT KNEE REASON FOR EXAM: Female, 57 years old. Pain. TECHNIQUE: 4 views of the left knee. COMPARISON: Left knee radiographs dated 06/13/2016. FINDINGS: Normal visualized distal femur. Normal visualized proximal tibia and fibula. Normal proximal tibiofibular articulation. There is no demonstrated acute fracture. There is mild degenerative arthrosis of the medial femorotibial compartment. There is mild degenerative arthrosis of the lateral femorotibial compartment. There is mild degenerative arthrosis of the patellofemoral articulation. There is a 6 mm well corticated ossified structure lateral to the lateral femoral condyle, probably the sequelae of an old avulsion injury. There is a tiny knee joint effusion. There is a small volume joint effusion. The soft tissue structures are unremarkable. RAD/Knee 4 or More Views IMPRESSION: Mild tricompartment degenerative arthrosis of the left knee. Tiny knee joint effusion. No demonstrated acute fracture. Electronically Signed: Bertram Hogan MD at 13:49 EDT ,
--- NOTE | 2023-11-16 12:25 | RAD_ITS ---
STUDY: X-RAY - RIGHT ANKLE REASON FOR EXAM: Female, 57 years old. Pain. TECHNIQUE: 3 views of the right ankle. COMPARISON: None. FINDINGS: Normal visualized distal tibia and fibula. Normal medial and lateral malleoli. Normal tibiotalar articulation and ankle mortise. Intact visualized talus and calcaneus. There is a posterior calcaneal tuberosity spur. The visualized subtalar, talonavicular, calcaneocuboid and tarsal articulations are normal. There is no demonstrated fracture. The soft tissue structures are unremarkable. RAD/Ankle min 3 Views IMPRESSION: Posterior calcaneal tuberosity spur. Electronically Signed: Bertram Hogan MD at 13:50 EDT ,
--- NOTE | 2023-11-16 12:27 | RAD_ITS ---
STUDY: X-RAY - RIGHT FOOT CLINICAL: Female, 57 years old. Pain. TECHNIQUE: 3 views of the right foot. COMPARISON: None. FINDINGS: Intact talus, calcaneus, and tarsal bones. There is a posterior calcaneal tuberosity spur. Normal visualized subtalar, talonavicular, calcaneocuboid, tarsal and tarsometatarsal articulations. Normal metatarsi. Normal metatarsophalangeal joint of the great toe. Normal tibial and fibular sesamoid bones. Normal interphalangeal joint of the great toe. Normal phalanges of the great toe. Normal second through fifth metatarsophalangeal joints. Normal interphalangeal joints and phalanges of the lesser toes. The soft tissue structures are unremarkable. There is no demonstrated fracture. RAD/Foot min 3 Views IMPRESSION: Posterior calcaneal tuberosity spur. No demonstrated fracture. Electronically Signed: Bertram Hogan MD at 13:52 EDT ,
== END | disposition home or self-care (01) ==
LOC: RAD 12:19
PROVIDERS: PCP Student in an Organized Health Care Education/Training Program; Referring Provider Student in an Organized Health Care Education/Training Program; Visit Provider Student in an Organized Health Care Education/Training Program
DX: M25.571 Pain in right ankle and joints of right foot (principal)
CPT/HCPCS: 73564; 73610; 73630

== ENCOUNTER → 2023-11-19 | Outpatient (CLI) | payer OTHER, SELFPAY ==
--- NOTE | 2023-11-19 08:09 | BI_ITS ---
MAMMOGRAPHY - BILATERAL SCREENING REASON FOR EXAM: Female, 57 years old. Routine annual screening examination. PERTINENT HISTORY: Non-contributory. TECHNIQUE: Digital bilateral breast azeb (3D mammographic acquisition) in the CC and MLO projections. 2-D mediolateral oblique (MLO) and craniocaudad (CC) views of both breasts were obtained. CAD: Full Field Digital Mammography with Computer Added Detection was performed. COMPARISON: Comparison is made with prior study dated November 17, 2022 and November 16, 2021. FINDINGS: Breast Composition: The breasts are heterogeneously dense, which may obscure small masses. There are no dominant masses or suspicious calcifications. Stable benign-appearing bilateral axillary lymph nodes. No other significant abnormalities are identified. There has been no significant change since the prior study. BI/SCRN MAMM (CAD)W/AZEB BILAT IMPRESSION: Stable bilateral screening mammogram. Yearly follow-up mammogram recommended. (A) ASSESSMENT CATEGORY: BIRADS Category 2: Benign. A letter regarding these results will be sent to the patient by the facility within 30 days. Approximately 10% of breast cancers are not detected by mammography. A normal mammogram should not delay biopsy of a clinically suspicious abnormality. [id number] Electronically Signed: Guido Lagos MD at 9:36 EDT ,
== END | disposition home or self-care (01) ==
LOC: OPBI 08:07
PROVIDERS: PCP Student in an Organized Health Care Education/Training Program; Referring Provider Student in an Organized Health Care Education/Training Program; Visit Provider Student in an Organized Health Care Education/Training Program
DX: Z12.31 Encounter for screening mammogram for malignant neoplasm of breast (principal)
CPT/HCPCS: 77063; 77067

== ENCOUNTER 2023-11-29 10:59 | Emergency (ER) | payer OTHER, SELFPAY ==
[2023-11-29 11:00] VITALS: BP 138/87; PULSE 72; RESP 14; TEMP 35.7; O2SAT 98; BMI 29.5
--- NOTE | 2023-11-29 11:14 | EX.ED.UPPERE ---
HPI History of Present Illness Chief Complaint: Upper Extremity Injury Detail of Chief Complaint: Left wrist pain Informant: patient Narrative Narrative: Patient presents secondary to left wrist pain. 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 Yesterday she was helping to boost a large patient when she felt a pulling sensation in her left wrist. She has pain over the extensor aspect of the left wrist. She is right-hand dominant. No paresthesias. [facility] Medical History Kidney stones History of pneumonia Knee pain Shoulder pain Home Medications ?Medication ?Instructions ?Recorded ?Last Taken ?Type ibuprofen 600 mg tablet 600 mg PO Q6H PRN PRN fever or 05/10/21 05/12/21 14:00 Rx pain #30 TABLETS azithromycin 250 mg tablet See Rx Instructions PO .COMPLEX #6 07/21/22 Unknown Rx tabs benzonatate 100 mg capsule 200 mg (2 x 100 mg) PO TID PRN 07/21/22 Unknown Rx cough #30 caps guaifenesin 600 mg tablet, 600 mg PO Q12H PRN 07/21/22 Unknown History extended release 12 hr (Mucinex) prednisone 20 mg tablet 40 mg (2 x 20 mg) PO DAILY #8 tabs 11/29/23 Unknown Rx Allergy/AdvReac Type Severity Reaction Status Date / Time Penicillins Allergy Mild Hives Verified 11/29/23 11:07 codeine phosphate (From Allergy Rash Verified 11/29/23 11:07 Tylenol-Codeine #3) piperacillin sodium (From Allergy Hives Verified 11/29/23 11:07 Zosyn) tazobactam sodium (From Allergy Hives Verified 11/29/23 11:07 Zosyn) acetaminophen (From Tylenol) AdvReac Hives, Verified 11/29/23 11:07 burning feeling, n/v Family History Mother Cancer Grandmother Heart disease Surgical History Hx of knee surgery Social History Smoking Status: Never smoker alcohol intake: current alcohol intake frequency: a few times a week Alcohol type: wine ROS ROS ED Constitutional Constitutional ED: Denies chills or fever(s) Cardiovascular Cardiovascular: Denies chest pain Respiratory/Chest Respiratory/Chest: Denies dyspnea Gastrointestinal Gastrointestinal: Denies abdominal pain Musculoskeletal Musculoskeletal: Reports extremity pain; Denies back pain Integumentary Denies Abrasions or rash Neurologic Neurologic: Denies headache(s), paresthesias or weakness Allergic/Immunologic Allergic/Immunologic ED: Denies lip swelling or urticaria EXAM Physical Exam Const Vital Signs: 11/29/23 11:00 Temperature 96.3 F L Temperature Source Temporal Pulse Rate 72 Respiratory Rate 14 Blood Pressure 138/87 H Blood Pressure Mean 104 Pulse Ox 98 Oxygen Delivery Method Room Air Positive well nourished and well developed General Appearance ED: well developed HEENT Reports moist mucous membranes Eyes EOMs intact bilaterally Chest Wall inspection of chest normal and palpation of chest normal Resp normal respiratory effort and clear to auscultation bilaterally Cardio regular rate and regular rhythm Extremity Extremity Narrative: Tender palpation over the dorsal aspect of the left wrist. No significant edema, erythema, abrasion. Increased pain with flexion of the left wrist. Good cap refill distally with normal strength and sensation. Neuro oriented x3 and moves all extremities Psych mental status grossly normal MDM MDM MDM Narrative Medical decision making narrative: Left wrist x-rays obtained to evaluate for potential fracture. Treatment and Re-Evaluation Narrative: Left wrist x-rays per my interpretation reveal no obvious fracture or dislocation. Radiology interpretation reviewed and agrees. Patient does have focal tenderness along the extensor tendons I do feel she has a degree of tendinitis. She be placed in a Velcro wrist splint and given a short course of prednisone. Patient will follow-up with employee health. Discharge Plan Triage Chief Complaint: Upper Extremity Injury ED Provider: Ada Dey Dx/Rx/DC Orders Clinical Impression: Left wrist tendinitis Instructions: ED Tendonitis Prescriptions: New prednisone 20 mg tablet 40 mg PO DAILY Qty: 8 0RF No Action guaifenesin [Mucinex] 600 mg tablet extended release 12hr 600 mg PO Q12H PRN azithromycin 250 mg tablet See Rx Instructions PO .COMPLEX Qty: 6 0RF Rx Instructions: take 500 mg today (day 1), then 250 mg for 4 days (days 2-5) PO benzonatate 100 mg capsule 200 mg PO TID PRN (Reason: cough) Qty: 30 0RF ibuprofen 600 MG tablet 600 mg PO Q6H PRN PRN (Reason: fever or pain) Qty: 30 0RF Stand Alone Forms: Work Status Form Primary Care Provider: Asher Aden Referrals: Asher Aden DO [Primary Care Provider] - Health,Employee [Non-Staff -Ordering Privileges] - 3-5 Days Print Language: Vietnamese Disposition Disposition: Home, Self Care
--- NOTE | 2023-11-29 11:20 | RAD_ITS ---
STUDY: X-RAY - LEFT WRIST REASON FOR EXAM: Female, 57 years old. Injury TECHNIQUE: 3 view(s) of the wrist were obtained. COMPARISON: None. FINDINGS: Normal visualized distal radius and ulna. Normal radiocarpal articulation. Normal distal radioulnar articulation. Normal carpal bones. Normal carpal articulations. Normal carpometacarpal articulation of the thumb. Normal second through fifth carpometacarpal articulations. Normal visualized metacarpal bones. The soft tissue structures are unremarkable. RAD/Wrist min 3 Views IMPRESSION: Normal x-ray examination of the wrist. Electronically Signed: Guido Lagos MD at 11:30 EDT ,
[2023-11-29] MEDS: predniSONE 20 MG Tablet 40 MG PO (12:17)
[2023-11-29 12:26] VITALS: BP 130/74; PULSE 72; RESP 18; TEMP 36.2; O2SAT 98
== END 2023-11-29 12:27 | disposition home or self-care (01) ==
PROVIDERS: Emergency Provider Emergency Medicine; PCP Student in an Organized Health Care Education/Training Program; Visit Provider Emergency Medicine
DX: M77.8 Other enthesopathies, not elsewhere classified (principal)
CPT/HCPCS: 73110; 99283

== ENCOUNTER 2023-12-26 11:05 | Outpatient (REF) | payer SELFPAY ==
[2023-12-26 11:06] VITALS: BP 122/66; PULSE 65; RESP 16; TEMP 35.5; O2SAT 97; BMI 29.6
--- NOTE | 2023-12-26 11:30 | EX.ED.UPPERE ---
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 He cleaned it off while on the floor. He is down here for a needlestick exposure. Denies any other complaints. Chief Complaint: Occup Expose Informant: patient Onset/Context/Timing Onset: Today and Hours Context: Sudden Onset Timing: Continuous Narrative Narrative: 58-year-old female needlestick exposure left index finger. Prior similar symptoms: No Recent Illness/Hospitalization: No PFSH PFSH Medical History Kidney stones History of pneumonia Knee pain Shoulder pain Home Medications ?Medication ?Instructions ?Recorded ?Last Taken ?Type ibuprofen 600 mg tablet 600 mg PO Q6H PRN PRN fever or 05/10/21 05/12/21 14:00 Rx pain #30 TABLETS azithromycin 250 mg tablet See Rx Instructions PO .COMPLEX #6 07/21/22 Unknown Rx tabs benzonatate 100 mg capsule 200 mg (2 x 100 mg) PO TID PRN 07/21/22 Unknown Rx cough #30 caps guaifenesin 600 mg tablet, 600 mg PO Q12H PRN 07/21/22 Unknown History extended release 12 hr (Mucinex) prednisone 20 mg tablet 40 mg (2 x 20 mg) PO DAILY #8 tabs 11/29/23 Unknown Rx Allergy/AdvReac Type Severity Reaction Status Date / Time Penicillins Allergy Mild Hives Verified 12/26/23 11:06 codeine phosphate (From Allergy Rash Verified 12/26/23 11:06 Tylenol-Codeine #3) piperacillin sodium (From Allergy Hives Verified 12/26/23 11:06 Zosyn) tazobactam sodium (From Allergy Hives Verified 12/26/23 11:06 Zosyn) acetaminophen (From Tylenol) AdvReac Hives, Verified 12/26/23 11:06 burning feeling, n/v Family History Mother Cancer Grandmother Heart disease Surgical History Hx of knee surgery Social History Smoking Status: Never smoker alcohol intake: current alcohol intake frequency: a few times a week Alcohol type: wine ROS ROS ED ROS Narrative Denies recent illness. Review of Systems ROS Unobtainable: Denies due to encephalopathy Constitutional Constitutional ED: Denies chills or fever(s) Eyes Eyes: Denies blurry vision ENT ENT ED: Denies ear pain Cardiovascular Cardiovascular: Denies chest pain Respiratory/Chest Respiratory/Chest: Denies cough or dyspnea Gastrointestinal Gastrointestinal: Denies abdominal pain Genitourinary Genitourinary ED: Denies dysuria or hematuria Musculoskeletal Musculoskeletal: Denies back pain or myalgias Integumentary Denies abscess or Abrasions Neurologic Neurologic: Denies headache(s) Psychiatric Psychiatric: Denies anxiety or depression Endocrine Endocrinology: Denies cold intolerance Hematologic/Lymphatic Hematologic/Lymphatic: Denies easy bleeding, easy bruising, lymphadenopathy or other Allergic/Immunologic Allergic/Immunologic ED: Denies mouth swelling, tongue swelling or urticaria EXAM Physical Exam Narrative Exam Narrative: Well-appearing 58-year-old female no acute distress. Vital signs stable afebrile. H EENT exam unremarkable. Lungs clear. Heart regular rhythm. Abdomen soft nontender. Moving all 4 extremities. Left index finger reported fingerstick. There is no signs of trauma. No signs of swelling or infection. Normal range of motion. Otherwise exam unremarkable. Const Vital Signs: 12/26/23 11:06 Temperature 96 F L Temperature Source Temporal Pulse Rate 65 Respiratory Rate 16 Blood Pressure 122/66 H Blood Pressure Mean 84 Pulse Ox 97 Oxygen Delivery Method Room Air Positive well nourished and well developed; Negative for obese, cachectic, contractures or unkempt General Appearance ED: well developed and NAD; Negative for unkempt, cachectic, contractures, cyanotic or diaphoretic Nutritional Appearance: Negative for cachectic or obese HEENT Reports moist mucous membranes normocephalic and atraumatic; Negative for trauma or tenderness Eyes PERRL and EOMs intact bilaterally General Eye ED: Negative for other Neck full ROM and supple General: Negative for tenderness Lymph Lymphatic: Negative for other Chest Wall inspection of chest normal and palpation of chest normal Chest: Negative for other Resp normal respiratory effort and clear to auscultation bilaterally Effort and Inspection: Negative for pain with movement Auscultation: Negative for rales, rhonchi, wheezes, diminished lung sounds or other Cardio regular rate, regular rhythm, S1 normal heart sound, S2 normal heart sound and no murmurs Rate: Negative for bradycardia or tachycardic Rhythm: Negative for abnormal rhythm GI non-tender, non-distended and no masses Palpation: soft Extremity normal to inspection and full ROM Extremity Narrative: No swelling. No infection. No signs of trauma. General Extremety ED: Negative for edema General Extremity: Negative for edema Neuro oriented x3, CN's II-XII intact bilaterally, moves all extremities and no focal motor deficits Sensorium / Orientation: alert, oriented to person, oriented to place and oriented to time Motor Exam: strength 5/5 throughout Psych mental status grossly normal Appearance: Negative for unkempt Mood & Affect: Negative for depressed, anxious or tearful Skin Lesions: no lesions Rashes: no rashes Trauma: no lacerations or abrasions; Negative for abrasion or laceration MDM MDM MDM Narrative Medical decision making narrative: 58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 ED exposure protocol. Follow-up with employee health. Discharge Plan Triage Chief Complaint: Occup Expose ED Provider: Edouard Thayer Dx/Rx/DC Orders Clinical Impression: Needlestick injury accident with exposure to body fluid Instructions: ED NEEDLE STICK Health Care Worker Prescriptions: No Action guaifenesin [Mucinex] 600 mg tablet extended release 12hr 600 mg PO Q12H PRN azithromycin 250 mg tablet See Rx Instructions PO .COMPLEX Qty: 6 0RF Rx Instructions: take 500 mg today (day 1), then 250 mg for 4 days (days 2-5) PO benzonatate 100 mg capsule 200 mg PO TID PRN (Reason: cough) Qty: 30 0RF ibuprofen 600 MG tablet 600 mg PO Q6H PRN PRN (Reason: fever or pain) Qty: 30 0RF prednisone 20 mg tablet 40 mg PO DAILY Qty: 8 0RF Primary Care Provider: Asher Aden Referrals: Asher Aden DO [Primary Care Provider] - Activity Restrictions/Additional Instructions: Follow-up with employee health. Print Language: Setswana Disposition Disposition: Home, Self Care
[2023-12-26 12:14] VITALS: BP 125/68; PULSE 74; RESP 18; TEMP 36.7; O2SAT 97
[2023-12-26 13:10] LABS: HIV - WCH Non-Reactive (Nonreactive); Hepatitis B Surface Antibody Reactive; Hepatitis B Surface Antigen Non-Reactive (Nonreactive); Hepatitis C Antibody Non-Reactive (Nonreactive)
== END 2023-12-26 12:15 | disposition home or self-care (01) ==
LOC: ED 11:05
PROVIDERS: PCP Student in an Organized Health Care Education/Training Program; Visit Provider Emergency Medicine
DX: Z77.21 Contact with and (suspected) exposure to potentially hazardous body fluids (principal); W46.0XXA Contact with hypodermic needle, initial encounter; Y92.239 Unspecified place in hospital as the place of occurrence of the external cause
CPT/HCPCS: 86703; 86706; 86803; 87340

== ENCOUNTER 2024-01-24 08:00 | Outpatient (RCR) | payer OTHER, SELFPAY ==
--- NOTE | 2023-12-25 08:52 | HP.OTEVAL ---
Patient's Visit Information Visit Information Visit Information: TEETEE WALKER is a 58 year old F, referred to Occupational Therapy by SAMEER Puga, with a diagnosis of L wrist tendinitis. Date of Evaluation: 12/25/23 Occupational Therapist: Jesica Arshad Subjective Subjective: This 58 year old female referred to OT with dx of wrist tendinitis. Pt with injury while at work on 11/30/23 while pulling someone up in bed. pt was wearing a wrist immobilization brace after injury reports helped a little but however has not been wearing other than while at work. 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 Pt reports pain is worse in the morning. Pt is R hand dominant. Pain L wrist: Current Pain Intensity: 4 Objective Objective/Observation: pt arrives no brace no swelling noted able to perform ROM WFL with excpetion of L wrist UD. ROM Shoulder: WFL Elbow: WFL Forearm: WFL Wrist: L 75/58 R 75/60 CMC: WFL MP: WFL IP: WFL Radial Abduction: WFL Palmar Abduction: WFL Opposition: WFL MP: WFL PIP: WFL DIP: WFL ROM Comments: able to make composite fist Left: UD 15 RD 25 Right: UD 30 RD 30 Strength Mechanical Ordnance Assembler: L 50# R 65# Lateral Pinch: L 7# R 10# Tripod Pinch: L 7# R 10# Edema Other: none Sensation Sensation Comments: denies numbness or tingling Quick DASH-Disab of Arm,Shoulder& Hand Quick DASH Score: 27.2725 Goals Goal:100% adherence to protocol: Yes Goal:ROM equal to unaffected hand: Yes Goal:Mechanical Ordnance Assembler/Pinch strength at least 75% of unaffected hand: Yes Goal:No pain with affected hand use: Yes Goal:Full use of affected hand in daily activities including work: Yes Other Goal: pt will demonstrate improvement in quick dash score by 5-8 points or more (27.27) in order to improve overall use of LUE pt will demonstrate 100% accuracy in L wrist HEP by second session Rehabilitation General Assessment: This 58 year old female arrives for referral for L wrist tendinitis as result of work injury pulling resident up in bed. Pt with ROM in normal limits with exception of L wrist ulnar deviation. pt reports pain levels come and go usually worse in the morning currently at a 4/10 pain. pt reports now only wearing brace while working adhering to 10# lift restriction given to ehr by physicain. Pt with weakness in L wedding day coordinator as well as pinch strength in comparison to non affected side. pt requiring OT services per C9 to complete x3 a week for 4-6 weeks. Rehabilitation Potential: Good Anticipated Interventions Anticipated Interventions: A/AAROM/PROM, Strengthening, Triggerpoint Release, Modalities, Joint Protection/Energy Conservation, Education re assistive Equipment, Education re Diagnosis, Education re Self Massage Techniques and Home Program Visit Plan Frequency: 3x /Week Duration: 4-6 Weeks General Plan: AROM/AAROM/PROM strengthening trigger point release modalities for pain management wrist bracing TEXT: Thank you for the opportunity to evaluate your patient. For Medicare and Medicare HMO plans, please review the plan of care and approve it. It will need to be FAXED BACK to us at [phone] for Medicare purposes. Please let me know if there are questions or concerns regarding this plan of care. Physician Signature: Date:
--- NOTE | 2024-01-17 08:32 | HP.OTREVAL ---
Re-Evaluation Intro: SAMEER Puga, It has been my pleasure to treat TEETEE WALKER over the last 9 visits for L wrist tendinitis. Please see the progress note below for an update on the occupational therapy plan of care! 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 and tripod pinch 10# this date progress from 7 UD now 30 degrees on L side Plan Plan Frequency: 3x /Week Duration: 1 Week Visits in this POC: 12 Goals Goals Patient Goals: Regain Strength, Decrease Pain, Return to Work, Decrease Swelling/Stiffness, Use Hand/Wrist/Arm Normally Again, Increase ROM, Resume Former Household Responsibilities (Cooking,Cleaning,Yard, etc.) and Resume Hobbies Goal Progress: Goal Met Goal:100% adherence to protocol: Yes Goal:ROM equal to unaffected hand: Yes Goal Progress: Goal Met Goal:Cutting Machine Tender Decorative/Pinch strength at least 75% of unaffected hand: Yes Goal Progress: Goal Met Goal:No pain with affected hand use: Yes Goal Progress: Progressing Goal:Full use of affected hand in daily activities including work: Yes Goal Progress: Progressing Other Goal: pt will demonstrate improvement in quick dash score by 5-8 points or more (27.27) in order to improve overall use of LUE GOAL MET pt will demonstrate 100% accuracy in L wrist HEP by second session GOAL MET Anticipated Interventions Anticipated Interventions Anticipated Interventions: A/AAROM/PROM, Strengthening, Triggerpoint Release, Modalities, Joint Protection/Energy Conservation, Education re assistive Equipment, Education re Diagnosis, Education re Self Massage Techniques and Home Program Re-Evaluation Ending Re-evaluation ending: Please do not hesitate to contact me at [phone] by phone or if you have questions or concerns regarding this new plan of care! Sincerely, Jesica Arshad
--- NOTE | 2024-01-24 08:34 | HP.OTDCSUM_ITS ---
Discharge Summary D/C Summary: It has been my pleasure to treat TEETEE WALKER under orders from SAMEER Puga, for the diagnosis of L wrist tendinitis for a total of 12 visit(s). Please see the following information for a summary of their discharge status. 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 8# tripod pinch L hand 10# L hand UD 30 degrees L wrist 70/60 Goals Patient Goals: Regain Strength, Decrease Pain, Return to Work, Decrease Swelling/Stiffness, Use Hand/Wrist/Arm Normally Again, Increase ROM, Resume Former Household Responsibilities (Cooking,Cleaning,Yard, etc.) and Resume Hobbies Goal:100% adherence to protocol: Yes Goal Progress: Goal Met Goal:ROM equal to unaffected hand: Yes Goal Progress: Goal Met Goal:Event Technician/Pinch strength at least 75% of unaffected hand: Yes Goal Progress: Goal Met Goal:No pain with affected hand use: Yes Goal Progress: Goal Met Goal:Full use of affected hand in daily activities including work: Yes Goal Progress: Goal Met Other Goal: pt will demonstrate improvement in quick dash score by 5-8 points or more (27.27) in order to improve overall use of LUE GOAL MET pt will demonstrate 100% accuracy in L wrist HEP by second session GOAL MET Plan Plan: discharge D/C Information d/c sentence: If there are questions or concerns regarding this patient's occupational therapy, please fell free to call me at [phone]. Thank you for the referral of this patient. Sincerely, Jesica Arshad
--- NOTE | 2024-01-24 08:34 | HP.OT.NRP ---
Patient Information Patient Information: TEETEE WALKER was seen in my office for initial evaluation on 12/25/23. The following Plan of Care was established for this patient: POC Established Initial Frequency: 3x /Week Initial Duration: 1 Week Plan: discharge Anticipated Interventions Anticipated Interventions: A/AAROM/PROM, Strengthening, Triggerpoint Release, Modalities, Joint Protection/Energy Conservation, Education re assistive Equipment, Education re Diagnosis, Education re Self Massage Techniques and Home Program Last Seen Last Seen: This patient was last seen in our office 01/24/24. Pertinent comments regarding their Occupational therapy will appear below: This 58 year old female seen by OT for dx of L wrist tendinitis. pt progressed in POC pain management, stretches, isometrics, wrist stabilization and initiation of progressive resistive strengthening work simulated tasks. pt has met all goals and no reports of pain at this time. OT discharge pt on 12 visit. At this point I will be discontinuing this patient from occupational therapy. I would be happy to see this patient again in the future if found appropriate by the physician. Thank you! Jesica Arshad
== END 2024-01-24 19:00 | disposition home or self-care (01) ==
LOC: OT 08:00
PROVIDERS: PCP Student in an Organized Health Care Education/Training Program; Referring Provider Physician Assistant Surgical; Visit Provider Physician Assistant Surgical
DX: M77.8 Other enthesopathies, not elsewhere classified (principal)
CPT/HCPCS: 97035; 97110; 97140; 97165; 97530

== ENCOUNTER → 2024-11-19 | Outpatient (CLI) | payer OTHER, SELFPAY ==
--- NOTE | 2024-11-19 10:48 | BI_ITS ---
EXAM: SCRN MAMM (CAD)W/AZEB BILAT DATE: 11/19/2024 CLINICAL HISTORY: F, Age 58 y/o , SCREENING TECHNIQUE: SCRN MAMM (CAD)W/AZEB BILAT COMPARISON: Prior exam(s) dated 11/19/2023, 11/17/2022, 11/16/2021. FINDINGS: TISSUE DENSITY: There are scattered areas of fibroglandular density. Bilateral Breast Mammographic Findings: No significant masses, calcifications or other abnormalities are identified. BI/SCRN MAMM (CAD)W/AZEB BILAT IMPRESSION: There is no mammographic evidence of malignancy. OVERALL FINAL ASSESSMENT BI-RADS 1: NEGATIVE. RECOMMEND ANNUAL MAMMOGRAPHIC SCREENING. RECOMMENDATION: Routine annual follow-up in 1 Year A letter with findings and recommendations will be mailed to the patient. Reading Location: [id number]
== END | disposition home or self-care (01) ==
LOC: OPBI 10:47
PROVIDERS: PCP Student in an Organized Health Care Education/Training Program; Referring Provider Student in an Organized Health Care Education/Training Program; Visit Provider Student in an Organized Health Care Education/Training Program
DX: Z12.31 Encounter for screening mammogram for malignant neoplasm of breast (principal)
CPT/HCPCS: 77063; 77067

== ENCOUNTER → 2025-03-27 | Outpatient (CLI) | payer OTHER, SELFPAY ==
[2025-04-01 12:09] LABS: HPV APTIMA, High Risk Negative (Negative)
== END | disposition home or self-care (01) ==
LOC: BWCLAB 16:27
PROVIDERS: PCP Student in an Organized Health Care Education/Training Program; Visit Provider Obstetrics & Gynecology
DX: Z12.4 Encounter for screening for malignant neoplasm of cervix (principal); Z80.41 Family history of malignant neoplasm of ovary
CPT/HCPCS: 87624; 88175; G0145